=== PATIENT | female | born 1970 | race Caucasian/White ===

== ENCOUNTER 2020-10-20 11:58 | Emergency (ER) | payer OTHER, SELFPAY ==
--- NOTE | ~2020-10-20 | XR_ITS ---
XR knee LT min 4V 10/20/2020 12:28 INDICATION: Left knee pain PROCEDURE: 4 views left knee COMPARISON: No prior studies for comparison. FINDINGS: Fracture, dislocation or subluxation is not identified. There is a small joint effusion. Th e soft tissues appear within normal limits. No foreign bodies are identified. IMPRESSION: 1: NO ACUTE BONE OR JOINT ABNORMALITY IDENTIFIED. Reviewed, dictated and finalized at location B. R SCIENTIST
[2020-10-20 12:00] VITALS: BP 136/74; PULSE 90; RESP 16; TEMP 36.1; O2SAT 100
[2020-10-20 13:54] LABS: Anion Gap 8 mmol/L (8-16); Blood Urea Nitrogen 9 mg/dL (7-17); Calcium 8.9 mg/dL (8.4-10.2); Carbon Dioxide 24 mmol/L (22-30); Chloride 105 mmol/L (98-107); Estimated CRCL calculation 123 ml/min; Estimated Glomerular Filt Rate > 60; Glucose 89 mg/dL (65-105); Potassium 4.1 mmol/L (3.4-5.0); Sodium 137 mmol/L (137-145)
--- NOTE | 2020-10-20 14:07 | ED.GENADULT ---
HPI - General Adult General Chief complaint: Extremity Injury, Lower Stated complaint: knee swelling Time Seen by Provider: 10/20/20 12:14 Source: patient Mode of arrival: ambulatory Limitations: no limitations History of Present Illness HPI narrative: Patient is a 50-year-old female who presents to emergency department for evaluation of painful nodules to the bilateral shins that developed over the last day patient notes aching pain worse with palpation as well as some itching patient notes a few days earlier getting out of the car she believes she may have twisted her left knee with swelling noted today later patient denies other injuries or complaints or recent illness. Related Data Allergies Allergy/AdvReac Type Severity Reaction Status Date / Time latex Allergy Unknown Rash Verified 06/28/18 10:37 Review of Systems Review of Systems: All systems reviewed & are unremarkable except as noted in HPI and below PMFSH Social History Social History Gender identity (if verbalized by the patient): Female Exam Narrative: Exam Narrative: GENERAL: Well-appearing, well-nourished, and in no acute distress. HEAD: Normocephalic, atraumatic. EYES: PERRLA and EOMI. ENT: Nares clear, no rhinorrhea or epistaxis. Mucous membranes moist. CHEST: Clear to auscultation. No respiratory distress. No wheezes rales or rhonchi HEART: Regular rate and rhythm. No murmur heard. Normal peripheral pulses. EXTREMITIES: Normal range of motion. No edema. SKIN: Warm, dry, no rash. Patient with several tender swollen nodular areas to the bilateral shins. Patient with tender swollen left knee mildly swollen in comparison to the right knee there is no erythema or warmth to touch involving the knee NEURO: No focal deficits. Alert and oriented x3. Neurovascularly intact. Capillary refill less than 2 seconds PSYCH: Normal mood and affect. Course Course Emergency Course: Patient in the room in no distress no high risk changes in the blood work or imaging will be sent home with primary care follow-up felt that the patient likely has erythema nodosum given the presentation and findings patient will be referred back to primary care for this and provided with reasons to return as well Vital Signs Vital signs: Vital Signs Temperature 97 F L 10/20/20 12:00 Pulse Rate 90 10/20/20 12:00 Respiratory Rate 16 10/20/20 12:00 Blood Pressure 136/74 10/20/20 12:00 Pulse Oximetry 100 10/20/20 12:00 Temperature 97 F L 10/20/20 12:00 Pulse Rate 90 10/20/20 12:00 Respiratory Rate 16 10/20/20 12:00 Blood Pressure 136/74 10/20/20 12:00 Pulse Oximetry 100 10/20/20 12:00 Medical Decision Making MDM Narrative Medical decision making narrative: Patients injury or pain is consistent with musculoskeletal etiology. No signs of neurological or vascular compromise on exam. Compartments and tisues are soft without signs of compartment syndrome. Pain is felt appropriate for further evaluation on an outpatient basis. Vital Signs Vital Signs: Vital Signs Temperature 97 F L 10/20/20 12:00 Pulse Rate 90 10/20/20 12:00 Respiratory Rate 16 10/20/20 12:00 Blood Pressure 136/74 10/20/20 12:00 Pulse Oximetry 100 10/20/20 12:00 Temperature 97 F L 10/20/20 12:00 Pulse Rate 90 10/20/20 12:00 Respiratory Rate 16 10/20/20 12:00 Blood Pressure 136/74 10/20/20 12:00 Pulse Oximetry 100 10/20/20 12:00 Lab Data Result diagrams: 10/20/20 14:12 10/20/20 13:35 Labs: Lab Results 10/20/20 10/20/20 Range/Units 13:35 14:12 WBC 12.5 H (4.5-10.0) K/mm3 RBC 4.79 (4.2-5.4) M/mm3 Hgb 14.4 (12.0-15.0) g/dL Hct 43.6 (37.0-47.0) % MCV 91.0 (80-100) fl MCH 30.1 (26-34) pg MCHC 33.0 (32-36) g/dl RDW 13.1 (11.5-14.5) % Plt Count 293 (150-375) k/mm3 MPV 10.4 (7.4-10.4) fl Immature Gran % (Auto) 0.5 (0-0.5
[2020-10-20 14:18] LABS: Basophils Absolute Auto 0.1 K/mm3 (0.0-0.1); Basophils Percent Auto 0.6 % (0.2-1.2); Eosinophils Absolute Auto 0.1 K/mm3 (0-0.3); Eosinophils Percent Auto 1.1 % (0-4.4); Hematocrit 43.6 % (37.0-47.0); Hemoglobin 14.4 g/dL (12.0-15.0); Immature Granulocyte Absolute 0.06 K/mm3 (0.00-0.031); Immature Granulocyte Percent A 0.5 % (0-0.5); Lymphocytes Absolute Auto 3.11 K/mm3 (0.9-3.2); Mean Corpuscular Hemoglobin 30.1 pg (26-34); Mean Platelet Volume 10.4 fl (7.4-10.4); Monocytes Absolute Auto 0.8 K/mm3 (0.1-0.6); Monocytes Percent Auto 6.5 % (2.6-8.5); Neutrophils Absolute Auto 8.3 K/mm3 (1.3-6.7); Neutrophils Percent Auto 66.3 % (45.5-73.1); Platelet Count Result 293 k/mm3 (150-375); Red Blood Count 4.79 M/mm3 (4.2-5.4); Red Cell Distribution Width 13.1 % (11.5-14.5); White Blood Count 12.5 K/mm3 (4.5-10.0)
== END 2020-10-20 14:45 | disposition home or self-care (01) ==
PROVIDERS: Emergency Medicine Emergency Medical Services; Emergency Provider Emergency Medicine; PCP Family Medicine
DX: L52 Erythema nodosum (principal); M25.562 Pain in left knee
CPT/HCPCS: 36415; 73564; 80048; 85025; 99283

== ENCOUNTER 2022-01-21 19:34 | Emergency (ER) | payer OTHER, SELFPAY ==
--- NOTE | 2022-01-21 20:13 | PC.NURSE ---
2007- Pt stated that she did not want to wait any longer and would go to another ER.
== END 2022-01-21 20:15 | disposition left against medical advice (07) ==
LOC: ANHED 20:18
PROVIDERS: PCP Family Medicine
DX: Z53.21 Procedure and treatment not carried out due to patient leaving prior to being seen by health care provider (principal)
CPT/HCPCS: 99199

== ENCOUNTER 2023-10-24 16:46 | Emergency (ER) | payer OTHER, SELFPAY ==
--- NOTE | ~2023-10-24 | CT_ITS ---
EXAMINATION: CT diagnostic chest wo con DATE: 10/24/2023 20:44 INDICATION: right rib pain, coughing TECHNIQUE: Computed tomography (CT) of the chest was performed without intravenous contrast. Addition al 3D reconstructions utilizing coronal maximum intensity projection (MIP) were performed. Automated exposure control and iterative reconstruction technique were employed. The dose-length product was 75 0.84 mGy-cm. COMPARISON: None FINDINGS: Subtle patchy groundglass opacities in the apical and posterior segments of the right upper lobe susp icious for pneumonia. No pulmonary edema or pleural effusion. Heart size is normal. No pericardial ef fusion. Thoracic aorta is normal in caliber. No pathologically enlarged abdominal or pelvic lymphaden opathy. Prominent diffuse hepatic steatosis. Visualized upper abdomen is otherwise unremarkable. No e vident rib fractures. Moderate thoracic spondylosis with chronic mild anterior wedging at T7-T9 and T 11. IMPRESSION: 1. Subtle patchy groundglass opacities in the right upper lobe suspicious for pneumonia. Reviewed, dictated and finalized at location A. OLOGY TEACHER IMPRESSION: 1. Subtle patchy groundglass opacities in the right upper lobe suspicious for p neumonia.
[2023-10-24 16:50] VITALS: BP 135/89; PULSE 78; RESP 20; TEMP 35.9; O2SAT 97
[2023-10-24 17:37] LABS: Influenza A QL RT-PCR Negative (Negative); Influenza B QL RT-PCR Negative (Negative); RSV RNA, RT-PCR Negative (Negative); SARS-CoV-2 RNA PCR Negative (Negative)
--- NOTE | 2023-10-24 20:31 | ED.GENADULT ---
[facility] - General Adult General Chief complaint: Upper Respiratory Infection Stated complaint: congestion/earache Time Seen by Provider: 10/24/23 19:57 Source: patient Mode of arrival: ambulatory Limitations: no limitations History of Present Illness HPI narrative: This is a 53-year-old female who presents to the ED with chief complaint of URI symptoms for the past 5 days. Reports significant coughing that has caused right-sided rib pain. She feels tight and wheezy. 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 Does know 1 of her coworkers was sick last week. Reports fevers a few days ago that have resolved. She is also reporting diarrhea with no GI bleeding symptoms. Denies nausea or vomiting, abdominal pain, exertional chest pain or shortness of breath. Related Data Allergies Allergy/AdvReac Type Severity Reaction Status Date / Time latex Allergy Unknown Rash Verified 06/28/18 10:37 Review of Systems Review of Systems: All systems as dictated in [facility] Social History Social History Gender identity (if verbalized by the patient): Female Exam Narrative: GENERAL: Well-appearing, well-nourished, and in no acute distress. HEAD: Normocephalic, atraumatic. EYES: PERRLA and EOMI. ENT: Nares clear, no rhinorrhea or epistaxis. Mucous membranes moist. Oropharynx without tonsillar hypertrophy exudate or other lesions. NECK: Supple. No adenopathy or masses. CHEST: No respiratory distress. Clear to auscultation. No wheezes rales or rhonchi. Moderate tenderness to the right anterior chest wall. 97% room air. HEART: Regular rate and rhythm. No murmur heard. Normal peripheral pulses. ABDOMEN: Soft, nontender, nondistended, normal active bowel sounds. MSK: Normal range of motion. No edema. SKIN: Warm, dry, no rash. NEURO: Alert and oriented x3. No focal deficits. PSYCH: Normal mood and affect. Course Vital Signs Vital signs: Vital Signs Temperature 96.7 F L 10/24/23 16:50 Pulse Rate 78 10/24/23 16:50 Respiratory Rate 20 10/24/23 16:50 Blood Pressure 135/89 10/24/23 16:50 Pulse Oximetry 97 10/24/23 16:50 Oxygen Delivery Room Air 10/24/23 16:50 Temperature 96.7 F L 10/24/23 16:50 Pulse Rate 80 10/24/23 22:11 Respiratory Rate 15 10/24/23 22:11 Blood Pressure 126/70 10/24/23 22:11 Pulse Oximetry 97 10/24/23 22:11 Oxygen Delivery Room Air 10/24/23 16:50 Medical Decision Making MDM Narrative Medical decision making narrative: This is a 53-year-old female who presents to the ED with chief complaint of URI symptoms and productive cough. She has right rib pain and is concern for possible rib fracture with the cough. Vitals are normal. Afebrile. Exam is overall benign but she does have point tenderness to the right ribs. Lab work shows relatively unremarkable CBC and CMP. Viral swabs are negative. Chest CT shows subtle patchy ground-glass opacities in the right upper lobe suspicious for pneumonia. She will be given prescription for azithromycin. Pt will be discharged in stable condition. Return precautions given and supportive measures discussed. Pt is understanding and agreeable with plan for discharge and follow-up with PCP. Vital Signs Vital Signs: Vital Signs Temperature 96.7 F L 10/24/23 16:50 Pulse Rate 78 10/24/23 16:50 Respiratory Rate 20 10/24/23 16:50 Blood Pressure 135/89 10/24/23 16:50 Pulse Oximetry 97 10/24/23 16:50 Oxygen Delivery Room Air 10/24/23 16:50 Temperature 96.7 F L 10/24/23 16:50 Pulse Rate 80 10/24/23 22:11 Respiratory Rate 15 10/24/23 22:11 Blood Pressure 126/70 10/24/23 22:11 Pulse Oximetry 97 10/24/23 22:11 Oxygen Delivery Room Air 10/24/23 16:50 Lab Data 10/24/23 21:18 10/24/23 21:18 Labs: Lab Results 10/24/23 10/24/23 Range/Units 16:54 21:18 WBC 10.9 H (4.5
[2023-10-24 21:28] VITALS: BP 124/76; PULSE 72; RESP 15; O2SAT 98
[2023-10-24 21:30] LABS: Basophils Absolute Auto 0.1 K/mm3 (0.0-0.1); Basophils Percent Auto 0.8 % (0.2-1.2); Eosinophils Absolute Auto 0.3 K/mm3 (0-0.3); Eosinophils Percent Auto 2.4 % (0-4.4); Hematocrit 45.2 % (37.0-47.0); Hemoglobin 14.8 g/dL (12.0-15.0); Immature Granulocyte Absolute 0.04 K/mm3 (0.00-0.031); Immature Granulocyte Percent A 0.4 % (0-0.5); Lymphocytes Absolute Auto 2.65 K/mm3 (0.9-3.2); Lymphocytes Percent Auto 24.3 % (18.3-44.2); Mean Corpuscular HGB Conc 32.7 g/dl (32-36); Mean Corpuscular Hemoglobin 29.8 pg (26-34); Mean Corpuscular Volume 90.9 fl (80-100); Mean Platelet Volume 11.1 fl (7.4-10.4); Monocytes Absolute Auto 0.7 K/mm3 (0.1-0.6); Monocytes Percent Auto 6.7 % (2.6-8.5); Neutrophils Absolute Auto 7.1 K/mm3 (1.3-6.7); Neutrophils Percent Auto 65.4 % (45.5-73.1); Platelet Count Result 259 k/mm3 (150-375); Red Blood Count 4.97 M/mm3 (4.2-5.4); Red Cell Distribution Width 12.9 % (11.5-14.5); White Blood Count 10.9 K/mm3 (4.5-10.0)
[2023-10-24 21:40] LABS: Alanine Aminotransferase 37 U/L (6-35); Albumin Level 4.2 g/dL (3.5-5.1); Alkaline Phosphatase 70 U/L (38-126); Anion Gap 7 mmol/L (8-16); Aspartate Amino Transferase 40 U/L (14-36); Bilirubin,Total 0.6 mg/dL (0.2-1.3); Blood Urea Nitrogen 12 mg/dL (7-17); Calcium 9.6 mg/dL (8.4-10.2); Carbon Dioxide 25 mmol/L (22-30); Chloride 104 mmol/L (98-107); Estimated CRCL calculation 118 ml/min; Estimated Glomerular Filt Rate > 60; Glucose 95 mg/dL (65-110); Sodium 136 mmol/L (137-145)
[2023-10-24 22:11] VITALS: BP 126/70; PULSE 80; RESP 15; O2SAT 97
== END 2023-10-24 22:11 | disposition home or self-care (01) ==
PROVIDERS: Student in an Organized Health Care Education/Training Program; Emergency Provider Physician Assistant; PCP Family Medicine
DX: J18.9 Pneumonia, unspecified organism (principal); Z20.822 Contact with and (suspected) exposure to COVID-19
CPT/HCPCS: 36415; 71250; 80053; 85025; 87637; 99284

== ENCOUNTER 2024-10-29 15:58 | Emergency (ER) | payer OTHER, SELFPAY ==
--- NOTE | ~2024-10-29 | CT_ITS ---
EXAMINATION: CTA chest PE abdomen pel DATE: 10/29/2024 21:55 INDICATION: Chest pain. Shortness of breath. Abdominal pain. TECHNIQUE: Computed tomography angiography (CTA) of the chest was performed with 100 mL Omnipaque-350 intravenous contrast timed to evaluate the pulmonary arteries. Coronal maximum intensity projection 3D-reconstructions were created by the technologist. Computed tomography (CT) of the abdomen and pelv is was performed with intravenous contrast. Automated exposure control and iterative reconstruction t echnique were employed. The dose-length product was 2370.14 mGy-cm. COMPARISON: CT chest 10/24/2023 FINDINGS: CTA chest: The lungs demonstrate mild atelectasis. There are a few nodules in right lung measuring up to 4 mm, likely benign. No pleural effusion. The heart size is normal. No pericardial effusion. Ther e is no pulmonary embolus. There is mild chronic anterior wedging of multiple vertebral bodies. There is moderate thoracic spondylosis and severe cervical spondylosis. CT abdomen and pelvis: There is diffuse hepatic steatosis. The gallbladder, spleen, pancreas, and adr enal glands are normal. There are cysts in the kidneys measuring up to 10 mm on the right. There are no dilated loops of bowel. The appendix is not visualized. There are no pathologically enlarged lymph nodes. There is no free intraperitoneal fluid. There are chronic bilateral L5 pars defects. There is severe lumbar spondylosis. IMPRESSION: 1. No pulmonary embolus. 2. Diffuse hepatic steatosis. Reviewed, dictated and finalized at location A. ICING MACHINE OPERATOR
--- NOTE | ~2024-10-29 | XR_ITS ---
EXAMINATION: XR chest 2V DATE: 10/29/2024 16:21 INDICATION: Left chest pain. TECHNIQUE: Frontal and lateral views of the chest were obtained. COMPARISON: Chest CT 10/24/2023 FINDINGS: There is mild atelectasis in left lower lung zone. No pleural effusion or pneumothorax. The heart size is normal. There is mild chronic anterior wedging of multiple vertebral bodies. IMPRESSION: 1. Mild atelectasis in left lower lung zone. Reviewed, dictated and finalized at location A. ESTATE LOAN PROCESSOR
--- NOTE | 2024-10-29 16:01 | ECG_ITS ---
Test Date: 2024-10-29 16:52:03 Measurements Intervals [place] Rate: 68 P: 31 MI: 151 QRS: 31 QRSD: 106 T: 12 QT: 399 QTc: 427 Interpretive Statements SINUS RHYTHM INCOMPLETE RIGHT BUNDLE BRANCH BLOCK LOW QRS VOLTAGE IN PRECORDIAL LEADS MINIMAL Q WAVES- INFERIOR LEADS BORDERLINE ECG No previous ECG available for comparison Electronically Signed On 10-29-2024 16:57:17 [employer] by Miguel Muller D.O.
--- OUTSIDE RECORDS SUMMARY | 2024-10-29 16:01 | XMS_ITS | Referral Summary ---
Author Organization [facility] Address [address] [place] [address] Care Team Providers Care Rivet Tester Name Role Phone Andrew Velazco DO Primary Care Provider + Allergies Active Allergy Reactions Criticality Noted Date Comments Latex Hives Medium 05/07/2019 Medications ibuprofen (Wal-Profen) 200 mg tab/cap 1 tablet/caps ule (200 mg total) 3 (three) times a day Active escitalopram (LEXAPRO) 10 mg tablet Take 1 tablet (10 mg total) by mouth daily 90 tablet 1 04/17/2023 Active ALPRAZolam (XANAX) 0.5 mg tablet Take 1 tablet (0.5 mg total) by mouth 3 (three) times a day 90 tablet 5 05/01/2023 Active acetaminophen-co deine (TYLENOL with CODEINE #3) 300-30 mg per tablet Take 1 tablet by mouth every 6 (six) hours as needed for pain 28 tablet 05/20/2023 Active furosemide (LASIX) 40 mg tablet Take 1 tablet (40 mg total) by mouth daily as needed (take daily prn for swelling) 30 tablet 09/16/2023 Active Active Problems Problem Noted Date Diagnosed Date Closed nondisplaced fracture of neck of left rad ius 05/22/2023 Annual physical exam 04/01/2023 Assessment & Plan (04/01/2023 4:55 PM CDT): Routine lab Losing hair Will also order a tsh and free t4 Also fatigue after eating Order a A1c and sma 7 Mammogram Order a colonoscopy Severe obesity (BMI 35.0-39.9) with comorbidity 04/01/2023 Assessment & Plan (04/01/2023 5:04 PM CDT): Healthy diet Regular exercise Weight loss Immunizations Immunization Administration Dates Next Due Influenza, Quadrivalent, Spl it, Preservative Free, Intramuscular 08/10/2019 Influenza, Unspecified 06/28/2022 Pneumococcal Polysaccharide PPV23 08/10/2019 Tdap 08/10/2019 Social History Tobacco Use Types Packs/Day Years Used Date Smoking Tobacco: Every Day Cigarettes Smokeless Tobacco: Never Tobacco Cessation:Ready to Q uit: Not Asked; Counseling Given: Not Answered AUDIT-C Answer Date Recorded Q1: How often do you have a drink containing alc ohol? Monthly or less 04/01/2023 Q2: How many drinks containi ng alcohol do you have on a typical day when you are drinking? 1 or 2 04/01/2023 Frequency of Binge Drinking Not on file 03/10 PHQ-2 Answer Date Recorded PHQ-2 Total Score (If total score is 3 or more points, staff should administer the PHQ-9) 1 04/01/2023 Personal Safety Answer Date Recorded Getting School Help Needed Not on file 08/21 Comments No Sex and Gender Information Value Date Recorded Sex Assigned at Not on file Legal Sex Female 12:02 AM KNOCKOUT MAN Gender Identity Not on file Sexual Orientation Not on file Last Filed Vital Signs Vital Sign Reading Time Taken Comments Blood Pressure 126/82 05/20/2023 11:44 AM CDT Pulse 67 05/20/2023 11:44 AM CDT Temperature 36.6 C (97.8 F) 05/20/2023 11:44 AM CDT Respiratory Rate 18 05/20/2023 11:44 AM CDT Oxygen Saturation 98% 05/20/2023 11:44 AM CDT Inhaled Oxygen Concentration - - Weight 114.8 kg (253 lb) 07/08/2023 1:33 PM CDT Height 170.2 cm (5' 7 ) 07/08/2023 1:33 PM CDT Body Mass Index 39.63 07/08/2023 1:33 PM CDT Plan of Treatment Not on file Insurance [facility] Care Teams Rivet Tester Relationship Specialty Start Date End Date Andrew Velazco DO PCP - General Family Medicine 04/04/23
--- OUTSIDE RECORDS SUMMARY | 2024-10-29 16:01 | XMS_ITS | Clinical Summary ---
Author Organization [facility] Address [address] [place] [address] Care Team Providers Care Manager Contact Name Role Phone Unavailable Primary Care Provider Unavailabl e Allergies Active Allergy Reactions Criticality Noted Date Comments Latex Hives 05/07/2019 Medications furosemide 40 MG tabletIndicatio ns:Peripheral edema Take 1 tablet (40 mg total) by mouth daily as needed. 90 tablet 3 01/31/2022 Active escitalopram (LEXAPRO) 10 MG tabletIndicatio ns:Bipolar 2 disorder ([facility]) Take 1 tablet by mouth once daily 90 tablet 01/06/2023 Active ALPRAZolam (XANAX) 0.5 MG tabletIndicatio ns:Anxiety,Christos odiazepine dependence ([facility]) TAKE 1 TABLET BY MOUTH THREE TIMES DAILY NEEDED FOR ANXIETY 90 tablet 03/20/2023 Active Active Problems Problem Noted Date Diagnosed Date [facility] benzodiazepine use 2022 Peripheral edema 01/31/2022 Bipolar 2 disorder ([facility]) 01/31/2022 Class 3 severe obesity due t o excess calories without serious comorbidity with body mass index (BMI) of 40.0 to 44.9 in adult ([facility]) 01/31/2022 Anxiety 10/03/2021 Resolved Problems Problem Noted Date Diagnosed Date Resolved Date Benzodiazepine dependence ([facility]) 01/31/2022 09/19/2022 Immunizations Name Administration Dates Next Due Fluzone 6 Months+ Quad (0.5 mL Prefilled Syringe) 08/10/2019 Influenza Adult (Generic) 06/03/2019(Def erred: Patient Refused),06/09/2018(Deferred: Patient Refused) PFIZER COVID-19 ([facility]), MRNA, LNP-S, PF, 30 MCG/0.3 ML PAMELA-SUCROSE, IM 10/03/2021 Pneumococcal (Pneumovax 23) 08/10/2019 Tdap (Adacel) 08/10/2019 Family History Medical History Relation Comments Cancer Maternal Aunt Diabetes Maternal Grandmother Heart Disease Maternal Grandmother Hyperlipidemia Maternal Grandmother Relation Status Comments Maternal Aunt Maternal Grandmother Social History Tobacco Use Types Packs/Day Years Used Date Smoking Tobacco: Every Day Cigarettes Smokeless Tobacco: Never Tobacco Cessation:Ready to Q uit: Yes; Counseling Given: Yes Comments:to discuss with physician PHQ-2 Answer Date Recorded PHQ-2 Score - If the patient scores above 3, please move on to questions 3-9 5 10/03/2021 Comments No Sex and Gender Information Value Date Recorded Sex Assigned at Not on file Legal Sex Female 8:19 PM CDT Gender Identity Female 09/13/2021 11:52 AM CHECK TOTALER Sexual Orientation Straight 09/13/2021 11 :52 AM CHECK TOTALER Last Filed Vital Signs Vital Sign Reading Time Taken Comments Blood Pressure 116/88 01/31/2022 10:57 AM CDT Pulse 76 01/31/2022 10:57 AM CDT Temperature 36.8 C (98.2 F) 01/31/2022 10:57 AM CDT Respiratory Rate 18 01/31/2022 10:5 7 AM CDT Oxygen Saturation 100% 01/31/2022 10: 57 AM CDT Inhaled Oxygen Concentration - - Weight 119.7 kg (263 lb 14.4 oz) 2021 10:57 AM CDT Height 167.6 cm (5' 6 ) 10/16/2019 10:4 4 AM CHECK TOTALER Body Mass Index 42.59 10/16/2019 10:44 AM CHECK TOTALER Plan of Treatment Health Maintenance Due Date Last Done Comments Colorectal Cancer Screening Colonoscopy (10 Years) 1972 PHQ-2 (Physician [place]) 1984 Hepatitis B Vaccines (1 of 3 - 19+ 3-dose series) 1991 Mammogram Screening 2012 Annual Physical 07/08/2020 07/08/2019 Pneumococcal Vaccine: Pediatrics (0 to 5 Years) and At-Risk Patients (6 to 64 Years) (2 of 2 - PCV) 08/10/2020 08/10/2019 Cervical Cancer Screening Pa p Smear (Age 30 to 64) Every 3 Years 07/08/2022 07/08/2019 Zoster Vaccines (1 of 2) 2022 COVID-19 Vaccine (4 - 2023-2 5 season) 2024 10/03/2021, 02/14/2021, 01/24/2021 Influenza Adult (#1) 2024 08/10/2019 Cervical Cancer Screening Pa p with HPV Testing (Age 30 to 64) Every 5 Years 07/08/2024 07/08/2019 Cervical Cancer Screening wi th HPV 07/08/2024 PHQ-2 (Physician [place]) 09/09/2024 DTaP, Tdap and Td Vaccines ( 2 - Td or Tdap) 08/10/2029 08/10/2019 Hepatitis C Completed 10/31/2021 Meningococcal B Vaccine Aged Out No l onger eligible based on patient's age to complete this topic Meningococcal Vaccine Aged Out No mildred elena eligible based on patient's age to complete this topic RSV Immunizations Under 20 Months Aged Out No longer eligible b ased on patient's age to complete this topic Procedures Procedure Name Priority Date/Time Associated Diagnosis Comments HEPATITIS C ANTIBODY W/RFX TO HCV RNA Routine 10/31/2021 1:16 PM CHECK TOTALER HPV MRNA E6/E7 Routine 07/08/2019 3:10 PM CDT CYTOPATH CERV/VAG THIN LAYER Routine 07/08/2019 12:00 AM CDT from Last 3 Months or Most Recently Relevant to Health Maintenance Results * HEPATITIS C ANTIBODY W/RFX TO HCV RNA (10/31/2021 1:16 PM CHECK TOTALER) HEPATITIS C AB NON-REACTI VE NON-REACT LORAINE [facility] SIGNAL TO CUTOFF 0.05 <[address] [facility] Comment: HCV antibody was non-reactive. There is no laboratory evidence of HCV infection. In most cases, no further action is required. However, if recent HCV exposure is suspected, a test for HCV RNA (test code 49547) is suggested. For additional information please refer to http://[facility]/faq/IAW36f0 (This link is being provided for informational/ educational purposes only.) 10/31/2021 1:16 PM CHECK TOTALER 10/31/2021 1:19 PM CHECK TOTALER Narrative [facility] - 11/04/2021 9:51 PM CHECK TOTALER FASTING:YES FASTING: YES Sanjay Vega MD LABORATORY Final Result [facility] [place] [address] [place] [address] * HPV MRNA E6/E7 (07/08/2019 3:10 PM CDT) HPV MRNA E6/E7 Not Detected NOT DETECTED 07/14/2019 7:55 AM CHECK TOTALER [facility] Comment: This test was performed using the APTIMA(R) HPV Assay ([employer] This assay detects E6/E7 viral messenger RNA (mRNA) from 14 high-risk HPV types (16,18,31,33,35,39,45,51, 52,56,58,59,66,68). For additional information please refer to: http://[facility]/faq/TVQ652l5 (This link is being provided for informational/ educational purposes only.) The analytical performance characteristics of this assay have been determined by [employer] [place], [place]. The modifications have not been cleared or approved by the FDA. This assay has been validated pursuant to the CLIA regulations and is used for clinical purposes. Test Performed by [facility], [facility], [address] [place] [address] Ortiz Paz M.D., Ph.D., Director of Laboratories , CLIA [id number] 07/08/2019 3:10 PM CDT Sanjay Vega MD PATHOLOGY/CYTOLOGY ORDERABLES Final Result [facility] [address] [place] [address], [place] [phone] * Cytopath Cerv/Vag Thin Layer (07/08/2019 12:00 AM CDT) COPATH REPORT [address] [address] [phone] Department of Pathology Pathology Report Gynecological Cytology Report Patient Name: BRITTNEY RAMSEY : 1970 (Age: 48) Location: [facility] Gender: F Collected Date: 07/08/2019 Med Rec #: [id number] Date Received: 07/10/2019 Date Reported: 07/14/2019 Provider: SANJAY VEGA MD Final Cytologic Diagnosis Satisfactory for evaluation. Endocervical component not identified. Negative for Intraepithelial Lesion or Malignancy. High-risk HPV mRNA E6/E7 by [employer]ptima assay (performed at [facility]) is reported as NOT DETECTED (see separate report for details). Electronically Signed Out By Oni Cee Source of Specimen(s) Cervical/Endocervi mango - Thin Prep Clinical History Screening, last Pap not provided. Z00.00, Z01.419 Date of Last Menstrual Period: [facility] Billing Fee Code(s): A: [address] [facility] 07/08/2019 07/10/2019 10: 25 AM CDT Comment:CERVICAL/ENDOCERVICA L - THIN PREP Sanjay Vega MD PATHOLOGY/CYTOLOGY ORDERABLES Final Result [facility] [address] [place] [address], [place] [phone] from Last 3 Months or Most Recently Relevant to Health Maintenance Insurance [employer]
--- OUTSIDE RECORDS SUMMARY | 2024-10-29 16:01 | XMS_ITS | Encounter Summary ---
Author Organization [facility] Address [address] [place] [address] Care Team Providers Care Slip Feeder Name Role Phone Sanjay Gallagher MD Primary Care Provider [phone] Encounter Details Date Type Department Care Team (Late st Contact Info) Description 09/19/2022 [employer] Systemst Message Enc [facility] Family Medicine - [place] [address], [address] [place] [address] Sanjay Gallagher MD [address] [facility] [address] [place] [address] Xanax Social History Tobacco Use Types Packs/Day Years Used Date Smoking Tobacco: Every Day Cigarettes Smokeless Tobacco: Never Comments:to discuss with larisa saab PHQ-2 Answer Date Recorded PHQ-2 Score - If the patient scores above 3, please move on to questions 3-9 5 10/03/2021 Comments No Sex and Gender Information Value Date Recorded Sex Assigned at Not on file Legal Sex Female 8:19 PM CDT Gender Identity Female 09/13/2021 11:52 AM BIRD TRAPPER Sexual Orientation Straight 09/13/2021 11 :52 AM BIRD TRAPPER documented as of this encounter Plan of Treatment Not on file documented as of this encounter Visit Diagnoses Not on filedocumented in this encounter Additional Health Concerns Assessment Noted Time PHQ-9 Depression Total Score: 18 022 4:54 PM BIRD TRAPPER documented as of this encounter Care Teams Slip Feeder Relationship Specialty Start Date End Date Sanjay Gallagher MD [address] [facility] [address] [place] [address] PCP - General FAMILY PRACTICE 02/13/19 04/02/23 documented as of this encounter
--- OUTSIDE RECORDS SUMMARY | 2024-10-29 16:01 | XMS_ITS | Encounter Summary ---
Author Organization [facility] Address [address] [place] [address] Care Team Providers Care Police Captain Precinct Name Role Phone Sanjay Gallagher MD Primary Care Provider [phone] Encounter Details Date Type Department Care Team (Late st Contact Info) Description 10/07/2021 MyChart Message Enc [facility] Family Medicine - [place] [address] [facility], [address] [place] [phone] Sanjay Gallagher MD [address] [place] [address] followup Social History Tobacco Use Types Packs/Day Years Used Date Smoking Tobacco: Every Day Cigarettes Smokeless Tobacco: Never PHQ-2 Answer Date Recorded PHQ-2 Score - If the patient scores above 3, please move on to questions 3-9 5 10/03/2021 Comments No Sex and Gender Information Value Date Recorded Sex Assigned at Not on file Legal Sex Female 8:19 PM CDT Gender Identity Female 09/13/2021 11:52 AM SUPERVISOR LONG GOODS Sexual Orientation Straight 09/13/2021 11 :52 AM SUPERVISOR [employer] COVID-19 Exposure Response Date Recorded In the last month, have you been in contact with someone who was confirmed or suspected to have Coronavirus / COVID-19? No / Unsure 10/03/2021 2:08 PM SUPERVISOR [employer] GOODS documented as of this encounter Plan of Treatment Not on file documented as of this encounter Visit Diagnoses Not on filedocumented in this encounter Additional Health Concerns Assessment Noted Time PHQ-9 Depression Total Score: 18 022 4:54 PM SUPERVISOR [employer] documented as of this encounter Care Teams Police Captain Precinct Relationship Specialty Start Date End Date Sanjay Gallagher MD [address] [address] [place] [address] PCP - General FAMILY PRACTICE 02/13/19 04/02/23 documented as of this encounter
--- OUTSIDE RECORDS SUMMARY | 2024-10-29 16:01 | XMS_ITS | Encounter Summary ---
Author Organization [facility] Address [address] [place] [address] Care Team Providers Care Hat Brim And Crown Laminating Operator Name Role Phone Sanjay Gallagher MD Primary Care Provider Encounter Details Date Type Department Care Team (Late st Contact Info) Description 01/04/2022 Good Eggs Message Enc [facility] Family Medicine - [place] [address] , [address] [place] [phone] [facility] Provider controlled substance agreement Social History Tobacco Use Types Packs/Day Years [...] CDT Gender Identity Female 09/13/2021 11:52 AM SAS ARCHITECT Sexual Orientation Straight 09/13/2021 11 :52 AM SAS ARCHITECT documented as of this encounter Plan of Treatment Not on file documented as of this encounter Visit Diagnoses Not on filedocumented in this encounter Additional Health Concerns Assessment Noted Time PHQ-9 Depression Total Score: 18 022 4:54 PM SAS ARCHITECT documented as of this encounter Care Teams Hat Brim And Crown Laminating Operator Relationship Specialty Start Date End Date Sanjay Gallagher MD [address] [facility] [address] [place] [address] PCP - General FAMILY PRACTICE 02/13/19 04/02/23 documented as of this encounter
--- OUTSIDE RECORDS SUMMARY | 2024-10-29 16:01 | XMS_ITS | Encounter Summary ---
Author Organization [facility] Care Team Providers Care Case Supervisor Name Role Phone Sanjay Gallagher MD Primary Care Provider + [phone] Andrew Velazco DO Primary Care Provider + Encounter Details Date Type Department Care Team (Latest Contact Info) Description 03/02/2014 Orders Only [facility] ProviderBere MD [address] [place] [address] Social History Tobacco Use Types Packs/Day Years Used Date Smoking Tobacco: Never Assessed Comments Unknown Sex and Gender Information Value Date Recorded Sex Assigned at Not on file Legal Sex Female 12:02 AM HOME DEPOT REP Gender Identity Not on file Sexual Orientation Not on file documented as of this encounter Plan of Treatment Not on file documented as of this encounter Procedures Procedure Name Priority Date/Time Associated Diagnosis Comments SCAN - LABS 03/02/2014 12:00 AM CDT documented in this encounter Results * SCAN - LABS (03/02/2014 12:00 AM CDT) Narrative 03/02/2014 12:00 AM CDT Ordered by an unspecified provider. Historical Provider Final Res ult documented in this encounter Visit Diagnoses Not on filedocumented in this encounter Care Teams Case Supervisor Relationship Specialty Start Date End Date Sanjay Gallagher MD [address] [facility] [address] [place] [address] PCP - General Family Practice 01/21/22 04/03/23 Andrew Velazco DO [facility] [address] PCP - General Family Medicine 04/04/23 documented as of this encounter
--- OUTSIDE RECORDS SUMMARY | 2024-10-29 16:01 | XMS_ITS | Encounter Summary ---
Author Organization [facility] Address [address] [place] [address] Care Team Providers Care Bun Machine Operator Name Role Phone Sanjay Gallagher MD Primary Care Provider [phone] Encounter Details Date Type Department Care Team (Late st Contact Info) Description 09/19/2022 MyCUrGiftt Message Enc [facility] Family Medicine - [place] [address] [facility], [address] [place] [phone] Sanjay Gallagher MD [address] [facility] [address] [place] [address] Sedative dependency Social History Tobacco Use Types Packs/Day Years [...] CDT Gender Identity Female 09/13/2021 11:52 AM TOLL BOOTH OPERATOR Sexual Orientation Straight 09/13/2021 11 :52 AM TOLL BOOTH OPERATOR documented as of this encounter Plan of Treatment Not on file documented as of this encounter Visit Diagnoses Not on filedocumented in this encounter Additional Health Concerns Assessment Noted Time PHQ-9 Depression Total Score: 18 022 4:54 PM TOLL BOOTH OPERATOR documented as of this encounter Care Teams Bun Machine Operator Relationship Specialty Start Date End Date Sanjay Gallagher MD [address] [facility] [address] [place] [address] PCP - General FAMILY PRACTICE 02/13/19 04/02/23 documented as of this encounter
--- OUTSIDE RECORDS SUMMARY | 2024-10-29 16:01 | XMS_ITS | Encounter Summary ---
Author Organization [facility] Address [address] [place] [address] Care Team Providers Care Food Order Delivery Runner Name Role Phone Sanjay Gallagher MD Primary Care Provider [phone] Encounter Details Date Type Department Care Team (Late st Contact Info) Description 02/08/2022 MyChart Message Enc [facility] Family Medicine - [place] [address] [facility], [address] [place] [phone] Sanjay Gallagher MD [address] [facility] [address] [place], [place] [phone] Blood tests Social History Tobacco Use Types Packs/Day Years Used Date Smoking Tobacco: Every Day Cigarettes Smokeless Tobacco: Never Comments:to discuss with konradgerard saab PHQ-2 Answer Date Recorded PHQ-2 Score - If the patient scores above 3, please move on to questions 3-9 5 10/03/2021 Comments No Sex and Gender Information Value Date Recorded Sex Assigned at Not on file Legal Sex Female 8:19 PM CDT Gender Identity Female 09/13/2021 11:[address] MIXER OPERATOR Sexual Orientation Straight 09/13/2021 11 :[address] MIXER OPERATOR COVID-19 Exposure Response Date Recorded In the last 10 days, have yo u been in contact with someone who was confirmed or suspected to have Coronavirus/COVID-19? No / Unsure 01/31/2022 10:47 AM CDT documented as of this encounter Progress Notes * Araceli Ramirez RN - 02/09/2022 10:33 AM CDT Sent a detailed [employer] message with results and recommendations per Dr. Gallagher. Requested patient to call back to the office or respond via [employer] [facility] with update on swelling. * Araceli Ramirez RN - 02/09/2022 10:30 AM CDT Images from the original note were not included. Sanjay Gallagher MD Stable renal function, please check on patient about swelling documented in this encounter Plan of Treatment Not on file documented as of this encounter Visit Diagnoses Not on filedocumented in this encounter Additional Health Concerns Assessment Noted Time PHQ-9 Depression Total Score: 18 10/03/ 022 4:[address] MIXER OPERATOR documented as of this encounter Care Teams Food Order Delivery Runner Relationship Specialty Start Date End Date Sanjay Gallagher MD [address] [address] PCP - General FAMILY PRACTICE 02/13/19 04/02/23 documented as of this encounter
--- OUTSIDE RECORDS SUMMARY | 2024-10-29 16:01 | XMS_ITS | Data Portability ---
Author Organization [facility] Address [address] [place] [address] Assessment No assessment recorded. Plan of Treatment Reminders Order Date Submit Date Provider Last Modified By Organization Details Last Modified Time Details Appointments None recorded. Lab BMP, serum or plasma 2023 [facility], [address], [address], [place], [address], 4 08:42:23 CBC 2023 024 [facility], [address], [address], [place], [address], 4 08:42:27 lipid panel, serum 2023 024 [facility], [address], [address], [place], [address], 4 08:42:20 TSH + free T4, serum 2023 024 [facility], [address], [address], [place], [address], 4 08:42:22 hepatic function panel, serum 2023 024 [facility], [address], [place], [address], 4 08:42:24 vitamin B12, serum 2023 024 [facility], [address], [address], [place], [address], 4 08:42:28 vitamin D, 25-hydroxy , total, serum 2023 024 [facility], [address], [address], [place], [address], 4 08:42:29 erythrocyt e sedimentat ion rate by westergren method 2023 024 [facility], [address], [address], [place], [address], 4 08:42:25 lipid panel, serum 2018 019 [facility], [address] [place], [place] [address]myesha Escudero, [address], [place], [address], 9 10:12:06 CMP, serum or plasma 2018 019 [facility], [address] [place], [place] [address]myesha Escudero, [address], [place], [address], 9 10:12:05 TSH, ultra-sens itive, serum 2018 019 [facility], [address] [place], [place] [address]myesha Escudero, [address], [place], [address], 9 10:12:07 HbA1c (hemoglobi n A1c), blood 2018 019 [facility], [address] [place], [place] [address]myesha Escudero, [address], [place], [address], 9 10:12:06 Referral gastroente rologist referral - Colonoscop y 2023 024 oksana Serrano DO, [address] [facility], [place], [address], 16:38:05 Procedures None recorded. Surgeries None recorded. Imaging MAMMO, screening, digital, bilateral [address] (Mammography) , [address], [place], [address], 10:27:03 Medication Orders Zithromax Z-Ivan 250 mg tablet 2023 024 [email or web address] [facility], [address] [place], [address], 4 12:37:01 Tessalon Perles 100 mg capsule 2023 024 [id number] [facility], [address] [place], [address], 4 12:37:01 escitalopr am 10 mg tablet 2018 019 INTERFACE [facility], [address] [place], [address], 9 11:25:00 Patient TargetsNo targets recorded. Patient Instructions Encounter Date Encounter Id Patient Instructions Last Modified By Organization Details Last Modified Time 01/29/2024 [id number] Quitting Tobacco : Care Instructions [email or web address] Not available 01/29/2024 15:30:13 A healthy lifestyle: care instructions Not available 01/29/2024 15:28:28 Reason for Referral Record Label Internship Referral for Adult health examination Colonoscopy Referring Physician: Andrew Velazco, Family Medicine, Encounter Date: 01/29/2024 Results Created Date Observation Date Name Description Value Unit Range Abnormal Flag Note LastModifiedBy Organization Detail LastModifiedTime 02/05/2002/05/2019 CMP, serum or plasm a glucose 85 mg/dL 65-99 Not Available [facility] ([facility]) [address] [facility], [place], [address], 02/05/2019 10:12:05 02/05/2002/05/2019 CMP, serum or plasm a BUN 9 mg/dL 6-24 Not Available [facility] ([facility]) [address] [facility] [place], [address], 02/05/2019 10:12:05 02/05/20 19 02/05/2019 CMP, serum or plasm a creatinine 0.66 mg/dL 0.57-1 .00 Not Available [facility] ([facility]) [address] [facility] [place], [address], 02/05/2019 10:12:05 02/05/20 19 02/05/2019 CMP, serum or plasm a eGFR if nonafricn AM 106 mL/mi n/1.7 3 >59 Not Available [facility] ([facility]) [address] [facility] [place], [address], 02/05/2019 10:12:05 02/05/20 19 02/05/2019 CMP, serum or plasm a eGFR if africn AM 123 mL/mi n/1.7 3 >59 Not Available [facility] ([facility]) [address] [facility] [place], [address], 02/05/2019 10:12:05 02/05/20 19 02/05/2019 CMP, serum or plasm a BUN/creatini ne ratio 14 9-23 Not Available [facility] ([facility]) [address] [place], [address], 02/05/2019 10:12:05 02/05/20 19 02/05/2019 CMP, serum or plasm a sodium 142 mmol/ L 134-14 4 Not Available [facility] ([facility]) [address] [facility] [place], [address], 02/05/2019 10:12:05 02/05/20 19 02/05/2019 CMP, serum or plasm a potassium 4.3 mmol/ L 3.5-5. 2 Not Available [facility] ([facility]) [address] [place], [address], 02/05/2019 10:12:05 02/05/20 19 02/05/2019 CMP, serum or plasm a chloride 105 mmol/ L 96-106 Not Available [facility] ([facility]) [address] [facility] [place], [address], 02/05/2019 10:12:05 02/05/20 19 02/05/2019 CMP, serum or plasm a carbon dioxide, total 20 mmol/ L 20-29 Not Available [facility] ([facility]) [address] [facility] [place], [address], 02/05/2019 10:12:05 02/05/20 19 02/05/2019 CMP, serum or plasm a calcium 9.2 mg/dL 8.7-10 .2 Not Available [facility] ([facility]) [address] [place], [address], 02/05/2019 10:12:05 02/05/20 19 02/05/2019 CMP, serum or plasm a protein, total 6.5 g/dL 6.0-8. 5 Not Available [facility] ([facility]) [address] [place], [address], 02/05/2019 10:12:05 02/05/20 19 02/05/2019 CMP, serum or plasm a albumin 4.2 g/dL 3.5-5. 5 Not Available [facility] ([facility]) [address] [place], [address], 02/05/2019 10:12:05 02/05/20 19 02/05/2019 CMP, serum or plasm a globulin, total 2.3 g/dL 1.5-4. 5 Not Available [facility] ([facility]) [address] [place], [address], 02/05/2019 10:12:05 02/05/20 19 02/05/2019 CMP, serum or plasm a A/G ratio 1.8 1.2-2. 2 Not Available [facility] ([facility]) [address] [facility], [place], [address], 02/05/2019 10:12:05 02/05/20 19 02/05/2019 CMP, serum or plasm a bilirubin, total 0.4 mg/dL 0.0-1. 2 Not Available [facility] ([facility] [address] [facility] [place], [address], 02/05/2019 10:12:05 02/05/20 19 02/05/2019 CMP, serum or plasm a alkaline phosphatase 55 IU/L 39-117 Not Available [facility] [address] [facility] [place], [address], 02/05/2019 10:12:05 02/05/20 19 02/05/2019 CMP, serum or plasm a AST (SGOT) 17 IU/L 0-40 Not Available [facility] ([facility]) [address] [facility] [place], [address], 02/05/2019 10:12:05 02/05/2002/05/2019 CMP, serum or plasm a ALT (SGPT) 23 IU/L 0-32 Not Available [facility] ([facility]) [address] [facility] [place], [address], 02/05/2019 10:12:05 02/05/20 19 02/05/2019 lipid panel , serum cholesterol, total 126 mg/dL 100-19 9 Not Available [facility] ([facility]) [address] [facility] [place], [address], 02/05/2019 10:12:06 02/05/2002/05/2019 lipid panel , serum triglyceride s 78 mg/dL 0-149 Not Available [facility] ([facility]) [address] [facility] [place], [address], 02/05/2019 10:12:06 02/05/20 19 02/05/2019 lipid panel , serum HDL cholesterol 46 mg/dL >39 Not Available [facility] ([facility]) [address] [facility] [place], [address], 02/05/2019 10:12:06 02/05/20 19 02/05/2019 lipid panel , serum VLDL cholesterol mango 16 mg/dL 5-40 Not Available [facility] ([facility]) [address] [facility] [place], [address], 02/05/2019 10:12:06 02/05/20 19 02/05/2019 lipid panel , serum LDL cholesterol calc 64 mg/dL 0-99 Not Available [facility] (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) [address] [place], [address], 02/05/2019 10:12:06 02/05/20 19 02/05/2019 HbA1c (hemo globi n A1c), blood hemoglobin A1C 5.9 % 4.8-5. 6 above high normal Predi abete s: 5.7 - 6.4 Diabe amaury: >6.4 Glyce abiola contr ol for adult s with diabe amaury: <7.0 Not Available [facility] ([facility]) [address] [facility], [place], [address], 02/05/2019 10:12:06 02/05/2002/05/2019 TSH, ultra -sens itive , serum TSH 1.390 uIU/m L 0.450- 4.500 Not Available [facility] ([facility]) [address] [place], [address], 02/05/2019 10:12:07 02/05/20 24 02/06/2024 LIPID PANEL WITH RATIO S cholesterol, total 123 mg/dL <200 normal Not Available [facility] [address] [place], [address], 02/06/2024 08:42:20 02/05/20 24 02/06/2024 LIPID PANEL WITH RATIO S HDL cholesterol 44 mg/dL > or = 50 low Not Available [address], [address], 02/06/2024 08:42:20 02/05/20 24 02/06/2024 LIPID PANEL WITH RATIO S triglyceride s 68 mg/dL <150 normal Not Available [facility] [address], [address], 02/06/2024 08:42:20 02/05/20 24 02/06/2024 LIPID PANEL WITH RATIO S LDL-choleste rol 65 mg/dL _(mango c) normal Refer ence range : <100 Nimco able range <100 mg/dL for prima ry preve ntion ; <70 mg/dL for patie nts with CHD or diabe tic patie nts with > or = 2 CHD risk facto rs. LDL-C is now calcu lated using the Dory n-[facility] arseniou angelina n, which is a valid ated novel jesús griggs than the Fried heather equat ion in the estim ation of LDL-C . Dory sinha SS et al. HUBER. 2013; 310(1 9): 2061- 2068 (http ://ed ucati on.Qu Robbie obrien OpenLabels. com/f aq/FA Q164) Not Available [address] [address] [place], [address], 02/06/2024 08:42:20 02/05/20 24 02/06/2024 LIPID PANEL WITH RATIO S chol/HDLC ratio 2.8 (calc ) <5.0 normal Not Available [address] [address] [place], [address], 02/06/2024 08:42:20 02/05/20 24 02/06/2024 LIPID PANEL WITH RATIO S LDL/HDL ratio 1.5 (calc ) Below avera ge Risk: <2.34 Dexter ge Risk: 2.35- 4.12 Moder ate Risk: 4.13- 5.56 High Risk: >5.57 Not Available [address] [place], [address], 02/06/2024 08:42:20 02/05/20 24 02/06/2024 LIPID PANEL WITH RATIO S non HDL cholesterol 79 mg/dL _(mango c) <130 normal For patie nts with diabe amaury plus 1 major ASCVD risk facto r, treat ing to a non-H DL-C goal of <100 mg/dL (LDL- C of <70 mg/dL ) is consi shaned a thergeorgiana peuti c optio n. Not Available [address], [address], 02/06/2024 08:42:20 02/05/2002/06/2024 TSH+F REE T4 TSH 1.88 mIU/L normal Refer ence Range > or = 20 Years 0.40- 4.50 Pregn kashif Range s First trime ster 0.26- 2.66 Secon d trime ster 0.55- 2.73 Third trime ster 0.43- 2.91 Not Available [address], [address], 02/06/2024 08:42:21 02/05/2002/06/2024 TSH+F REE T4 T4, free 1.1 NG/dL 0.8-1. 8 normal Not Available [facility] [address] [address] [place], [address], 02/06/2024 08:42:21 02/05/2002/06/2024 BASIC METAB OLIC PANEL glucose 83 mg/dL 65-99 normal Fasti ng refer ence inter pranay Not Available [address] [place], [address], 02/06/2024 08:42:23 02/05/20 24 02/06/2024 BASIC METAB OLIC PANEL urea nitrogen (BUN) 11 mg/dL 7-25 normal Not Available [address], [address], 02/06/2024 08:42:23 02/05/20 24 02/06/2024 BASIC METAB OLIC PANEL creatinine 0.64 mg/dL 0.50-1 .03 normal Not Available [facility] [address], [address], 02/06/2024 08:42:23 02/05/20 24 02/06/2024 BASIC METAB OLIC PANEL eGFR 107 mL/mi n/1.7 3m2 > or = 60 normal Not Available [address], [address], 02/06/2024 08:42:23 02/05/20 24 02/06/2024 BASIC METAB OLIC PANEL BUN/creatini ne ratio SEE NOTE: (calc ) 6-22 Not Repor shy: BUN and Creat inine are withi n refer ence range . Not Available [facility] [address], [address], 02/06/2024 08:42:23 02/05/20 24 02/06/2024 BASIC METAB OLIC PANEL sodium 139 mmol/ L 135-14 6 normal Not Available [facility] [address], [address], 02/06/2024 08:42:23 02/05/20 24 02/06/2024 BASIC METAB OLIC PANEL potassium 4.3 mmol/ L 3.5-5. 3 normal Not Available [facility] [address], [address], 02/06/2024 08:42:23 02/05/20 24 02/06/2024 BASIC METAB OLIC PANEL chloride 104 mmol/ L 98-110 normal Not Available [facility] [address], [address], 02/06/2024 08:42:23 02/05/20 24 02/06/2024 BASIC METAB OLIC PANEL carbon dioxide 26 mmol/ L 20-32 normal Not Available [address], [address], 02/06/2024 08:42:23 02/05/20 24 02/06/2024 BASIC METAB OLIC PANEL calcium 8.9 mg/dL 8.6-10 .4 normal Not Available [address], [address], 02/06/2024 08:42:23 02/05/20 24 02/06/2024 HEPAT IC FUNCT ION PANEL protein, total 6.2 g/dL 6.1-8. 1 normal Not Available [address], [address], 02/06/2024 08:42:24 02/05/20 24 02/06/2024 HEPAT IC FUNCT ION PANEL albumin 4.1 g/dL 3.6-5. 1 normal Not Available [address], [address], 02/06/2024 08:42:24 02/05/20 24 02/06/2024 HEPAT IC FUNCT ION PANEL globulin 2.1 g/dL_ (calc ) 1.9-3. 7 normal Not Available [address], [address], 02/06/2024 08:42:24 02/05/20 24 02/06/2024 HEPAT IC FUNCT ION PANEL albumin/glob ulin ratio 2.0 (calc ) 1.0-2. 5 normal Not Available [address], [address], 02/06/2024 08:42:24 02/05/20 24 02/06/2024 HEPAT IC FUNCT ION PANEL bilirubin, total 0.6 mg/dL 0.2-1. 2 normal Not Available [address], [address], 02/06/2024 08:42:24 02/05/20 24 02/06/2024 HEPAT IC FUNCT ION PANEL bilirubin, direct 0.1 mg/dL < or = 0.2 normal Not Available [address], [address], 02/06/2024 08:42:24 02/05/20 24 02/06/2024 HEPAT IC FUNCT ION PANEL bilirubin, indirect 0.5 mg/dL _(mango c) 0.2-1. 2 normal Not Available [address], [address], 02/06/2024 08:42:24 02/05/20 24 02/06/2024 HEPAT IC FUNCT ION PANEL alkaline phosphatase 53 U/L 37-153 normal Not Available [address], [address], 02/06/2024 08:42:24 02/05/20 24 02/06/2024 HEPAT IC FUNCT ION PANEL AST 15 U/L 10-35 normal Not Available [address], [address], 02/06/2024 08:42:24 02/05/20 24 02/06/2024 HEPAT IC FUNCT ION PANEL ALT 19 U/L 6-29 normal Not Available [address], [address], 02/06/2024 08:42:24 02/05/20 24 02/06/2024 SED RATE BY MODIF IED CHAMP ISSAREN sed rate by modified marcusren 2 mm/h < or = 30 normal Not Available [address], [address], 02/06/2024 08:42:25 02/05/20 24 02/06/2024 CBC (H/H, RBC, INDIC ES, WBC, PLT) white blood cell count 8.2 thous and/u L 3.8-10 .8 normal Not Available [address], [address], 02/06/2024 08:42:27 02/05/2002/06/2024 CBC (H/H, RBC, INDIC ES, WBC, PLT) red blood cell count 4.69 zheng on/uL 3.80-5 .10 normal Not Available [address], [address], 02/06/2024 08:42:27 02/05/2002/06/2024 CBC (H/H, RBC, INDIC ES, WBC, PLT) hemoglobin 14.1 g/dL 11.7-1 5.5 normal Not Available [address], [address], 02/06/2024 08:42:27 02/05/2002/06/2024 CBC (H/H, RBC, INDIC ES, WBC, PLT) hematocrit 43.0 % 35.0-4 5.0 normal Not Available [address], [address], 02/06/2024 08:42:27 02/05/2002/06/2024 CBC (H/H, RBC, INDIC ES, WBC, PLT) MCV 91.7 fL 80.0-1 00.0 normal Not Available [address], [address], 02/06/2024 08:42:27 02/05/2002/06/2024 CBC (H/H, RBC, INDIC ES, WBC, PLT) MCH 30.1 pg 27.0-3 3.0 normal Not Available [address], [address], 02/06/2024 08:42:27 02/05/20 24 02/06/2024 CBC (H/H, RBC, INDIC ES, WBC, PLT) MCHC 32.8 g/dL 32.0-3 6.0 normal Not Available [address], [address], 02/06/2024 08:42:27 02/05/20 24 02/06/2024 CBC (H/H, RBC, INDIC ES, WBC, PLT) RDW 12.8 % 11.0-1 5.0 normal Not Available [address], [address], 02/06/2024 08:42:27 02/05/20 24 02/06/2024 CBC (H/H, RBC, INDIC ES, WBC, PLT) platelet count 246 thous and/u L 140-40 0 normal Not Available [address], [address], 02/06/2024 08:42:27 02/05/20 24 02/06/2024 CBC (H/H, RBC, INDIC ES, WBC, PLT) MPV 12.0 fL 7.5-12 .5 normal Not Available [address], [address], 02/06/2024 08:42:27 02/05/20 24 02/06/2024 VITAM IN B12 vitamin B12 487 pg/mL 200-11 00 normal Not Available [address], [address], 02/06/2024 08:42:28 02/05/2002/06/2024 VITAM IN D,25- OH,TO MAI,I A vitamin D,25-oh,tota l,ia 15 NG/mL 30-100 low Vitam in D Statu s 25-OH Vitam in D: Defic iency : <20 ng/mL Insuf ficie ncy: 20 - 29 ng/mL Optim al: > or = 30 ng/mL For 25-OH Vitam in D testi ng on patie nts on D2-gu pplem entat ion and patie nts for whom quant itati on of D2 and D3 fract ions is requi red, the [facility] e[facility](TM ) 25-OH VIT D, (D2,D 3), LC/MS /MS is recom koby d: order code 88184 (cody ents >2yrs ). See Note 1 Note 1 For addit ional infor dhruv santo refer to http: //[facility] joe James stDia gnost ics.c om/fa q/FAQ 199 (This link is being provi ded for infor priscilla groves/ educgeorgiana sorto purpo ses only. ) Not Available [facility] [address] [place], [address], 02/06/2024 08:42:29 Result Notes None recorded. Problems Name Problem SNOMED Code Status Onset Date Resolution Date Notes Provider Name and Address Organization Details Recorded Time Mixed anxiety and depressive disorder 572990140 Active 2018 Musa Dietrich PA-C Attn: Libra swift,[address] [place], [address], [place] - [facility] 9 11:16:36 Adult health examination Active 2023 Andrew Velazco DO Attn: Libra swift,[address] [place], [address], [place] [facility] 4 21:21:51 Depressive disorder 72060204 Active 2023 Andrew Velazco DO Attn: Libra swift,[address] [place], [address], [place] [facility] 4 21:21:52 Generalized anxiety disorder 69921129 Active 2023 Andrew Velazco DO Attn: Libra swift,[address] [place], [address], [place] [facility] 4 21:21:53 Headache 65157717 Active 2023 Andrew Velazco DO Attn: Libra swift,[address] [facility], [place], [address], [facility] - [facility] 4 15:30:06 Smoker 46331866 Active 2023 Andrew Velazco DO Attn: Libra swift,[address] [facility], [place], [address], [facility] - [facility] 4 15:30:07 Morbid obesity 568314860 Active 2023 Andrew Velazco DO Attn: Accountdalia g,[address] [facility], [place], [address], [facility] - [facility] 4 15:30:08 Cough 79873824 Active 2023 Andrew Velazco DO Attn: Libra swift,[address] [facility], [place], [address], [facility] - [facility] 4 12:02:25 Problem Notes None recorded. Procedures Surgical History Date Name Laterality Status Provider Name and Address Organization Details Recorded Time 8 section completed Musa Dietrich PA-C Attn: Accounting,[address] [place], [address], [facility] - [facility] 02/04/2019 11:20:05 Imaging Results None recorded. Procedure Notes None recorded. Medical Equipment None Reported. Allergies Allergen ID Allergen Name Allergen Category Reaction Reaction Severity Criticality Documentation Date Start Date Code Code System Note Provider Name and Address Organization Details Recorded Time 522679 latex environme nt,medica tion hives Not available Not available 02/04/2019 14441 91 RxNorm Not Available Not Available Not Available Medications Name Sig Start Date Stop Date Status Note LastModified by Organization Details LastModified Time furosemide 40 mg tablet TAKE 1 TABLET BY MOUTH ONCE DAILY active Not Available Not Available No t Available azithromyci n 250 mg tablet TAKE 2 TABLETS BY MOUTH ON DAY 1, AND THEN TAKE 1 TABLET BY MOUTH ONCE A DAY ON DAY 2 THROUGH DAY 5 active Not Available Not Available No t Available clonazepam 1 mg tablet Take 1.5 tablets twice a day by oral route. 01/28 completed Not Available Not Available Not Available acetaminoph en 300 mg-codeine 30 mg tablet TAKE 1 TABLET BY MOUTH EVERY 6 HOURS NEEDED FOR PAIN 01/28 completed Not Available Not Available Not Available sulfamethox azole 800 mg-trimetho prim 160 mg tablet 02/04 completed Not Available Not Available Not Available alprazolam 0.5 mg tablet TAKE 1 TABLET BY MOUTH THREE TIMES DAILY active Not Available Not Available No t Available benzonatate 100 mg capsule TAKE 1 CAPSULE BY MOUTH THREE TIMES DAILY FOR 10 DAYS active Not Available Not Available No t Available methylpredn isolone 4 mg tablets in a dose pack TAKE 6 TABLETS ON DAY 1 DIRECTED ON PACKAGE AND DECREASE BY 1 TAB EACH DAY FOR A TOTAL OF 6 DAYS 01/28 completed Not Available Not Available Not Available escitalopra m 10 mg tablet TAKE 1 TABLET BY MOUTH ONCE DAILY active Not Available Not Available No t Available Vitals Date Recorded Body height Body mass index (BMI) Body weight Body temperature Heart rate Oxygen saturation Oxygen saturation in Arterial blood by Pulse oximetry Systolic blood pressure Diastolic blood pressure Provider Name and Address Organization Details Last Updated DateTime 9 165.1 cm 42.1 kg/m2 289668. 87 g 98.2 [degF] 82 /min 96 % 96 % 110 mm[Hg] 80 mm[Hg] Autumn Clifton MA [facility] 9 10:48:42 Date Recorded Body height Body mass index (BMI) Body weight Oxygen saturation Oxygen saturation in Arterial blood by Pulse oximetry Heart rate Provider Name and Address Organization Details Last Updated DateTime 4 170.18 cm 41.1 kg/m2 424345. 9 g 96 % 96 % 72 /min Anay Rooney RN [facility] 4 15:10:56 Date Recorded Body height Body mass index (BMI) Body weight Body temperature Provider Name and Address Organization Details Last Updated DateTime 05/08/2024 170.18 cm 40.1 kg/m2 289539.4 g 97.9 [degF] Radha Royal MA [facility] 05/08/2024 11:35:20 Date Recorded Systolic blood pressure Diastolic blood pressure Provider Name and Address Organization Details Last Updated DateTime 05/08/2024 132 mm[Hg] 82 mm[Hg] Andrew Velazco DO Attn: Accounting,[address] [facility], [place], [address], [place] [facility] 05/08/2024 12:02:05 Social History Question Answer Notes LastModified by Organizat ion Details LastModified Time Tobacco Smoking Status Current Every Day Smoker JULIAN Melendez, [place] [facility] 02/04/2019 10:46:26 What Is Your Level Of Alcohol Consumption? Occasional Information not available 01/29/2024 What Is Your Level Of Caffeine Consumption? Moderate Information not available 01/29/2024 What Was The Date Of Your Most Recent Tobacco Screening? 02/04/2019 [id number] Information not available 04/02/2019 How Much Tobacco Do You Smoke? 1 PPD Information not available 02/04/2019 Do You Use Any Illicit Or Recreational Drugs? No Information not available 01/29/2024 Has Tobacco Cessation Counseling Been Provided? Yes Information not available 02/04/2019 On What Date Was Tobacco Cessation Counseling Provided? 05/08/2024 [email or web address] Information not available 05/08/2024 How Many Years Have You Smoked Tobacco? 30 Information not available 02/04/2019 Sex: Unknown Functional Status None recorded. Mental Status None recorded. Family History Relationship Description Onset Age of this Age Resolved Age Notes LastModified by Organization Details LastModified Time Maternal Aunt Malignant neoplasm of liver [email or web address] Not available 2018 11:18:37 Son Autistic disorder [email or web address] Not available 2018 11:18:45 Maternal Grandmother Diabetes mellitus Not available 2018 11:18:56 Maternal Grandfather Systemic lupus erythematosu s [email or web address] Not available 2018 11:19:07 Maternal Grandfather Rheumatoid arthritis [email or web address] Not available 2018 11:19:15 Medical History Condition Response Coronary Artery Disease N Other N High Blood Pressure N Atrial Fibrillation N Kidney or Bladder Problems N Thyroid Problems N Blood Clots N COPD N Depression Y GI Problems N Skin Problems N Eating Disorder N Anemia N Heart Attack ([place]) N Anxiety Disorder Y Diabetes N Muscle, Joint, or Bone Problems N Arthritis N Seizures/Epilepsy N Acid Reflux (GERD) N Cancer N Stroke N Asthma N Allergies N ADHD N Substance Abuse N High Cholesterol N Hepatitis N Liver Disease N Schizophrenia N Headaches N Heart Failure N Osteoporosis N Gynecological HistoryNo gynecological history recorded. Obstetrics History GPAL:G 0 P 0 0 0 0 Past Encounters Encounter ID Performer Location Encounter Start Date Encounter Closed Date Diagnosis/Indication Diagnosis SNOMED-CT Code Diagnosis ICD10 Code Diagnosis Note [id number] Musa Dietrich PA-C [facility] ([facility] [facility]) [address] [place] [address] 02/04/2019 10:38:03 02/05/2019 08:59:14 Adult health examination [id number] Z00.00 We will check some routine labs today. I encouraged pt to eat low-fat, low-salt diet and exercise most days of the week. Mixed anxi ety and depressive disorder 503462394 F41.8 Discussed pt's care with Dr. Menard, who advised switching to a longer acting benzo and ultimately tapering off the medication when Brittney is comfortabl e. I have not been able to reach Brittney, but have LVM requesting she call us to discuss. Kay huizar, can follow up with psych if she is not comfortabl e switching medication s. [id number] Andrew Velazco DO [facility] [place] [facility] [place] [address] [place] [address] 01/29/2024 14:50:27 01/29/2024 16:18:49 Adult health examination [id number] Z00.00 routine labmammogr am needs to be orderedcol onoscopy Depressive disorder 3378 9007 F32.A chronic conditiona t goalescita lopram/Diallo apro 10 mg Generalize d anxiety disorder 21088724 F41.1 chronic conditiona t goalalpraz olam 0.5 mg Morbid obesity 818166148 E66.01 healthy dietweight losschroni c conditionn ot at goal Smoker 77376291 F17.200 recommend cessationd iscussed Headache 60179451 R51.9 right sidedfront alhas ocular migraine diagnosisa dd nurtec 75 mg samples given [id number] Andrew Velazco DO [facility] [place] [facility] [place] [address] [facility] [address] [place] [address] 05/08/2024 11:23:28 05/09/2024 10:21:24 Cough 47910764 R05.9 [address] [facility] Smoker 11231065 F17.200 recommend cessationd iscussed Morbid obesity 117606738 E66.01 healthy dietweight losschroni c conditionn ot at goal Health Concerns Section Related Observation LastModified by Organization Detai ls LastModified Time None Recorded Concern Status LastModified by Organization Details LastModified Time None Recorded Advance Directives Directive None Recorded Payers Encounter Date Sequence Insurance Name Policy Number Policy Centeno Covered Member ID Centeno Member ID Guarantor Name 02/04/2019 1 [facility] - DOS PRIOR TO 2021 (MEDICAID REPLACEMENT - HMO) Brittney Ramsey [id number] Brittney Ageeteeguma 01/29/2024 1 [facility] (MEDICAID HMO) [id number] Brittney Versteegt [id number] Brittney Versteegt 05/08/2024 1 [facility] (HMO) [id number] Brittney Sorto Versteegt [id number] Brittney Versteegt Notes Date Note Type Note Provider Name and Address Organization Details Recorded Time 02/04/2019 text/html Brittney is here toda y to establish care. She has been diagnosed with mixed anxiety and depressive disorder by Dr. Pinto, her previous PCP, and has been treated with Escitalopram 10mg daily and Alprazolam 0.5mg daily. She has achieved good symptomatic control with this regimen, but occasionally feels her depression gets the best of her. She states she is able to work through these emotions and denies SI/HI. She has no other concerns at this time. Musa Dietrich PA-C Attn: Accounting,[address] [facility], [place], [address], [facility] 02/04/2019 14:43:39 01/29/2024 text/html establish care Andrew Velazco DO Attn: Accounting,[address] [facility], [place], [address], [facility] 01/29/2024 18:25:25 05/08/2024 text/html frontal headachecoughsore throatstarted 8 days Andrew Velazco DO Attn: Accounting,[address] [place], [address], [facility] 05/08/2024 14:21:41 OBGyn Episode No OBEpisode recorded.
--- OUTSIDE RECORDS SUMMARY | 2024-10-29 16:01 | XMS_ITS | Encounter Summary ---
Author Organization [facility] Healthcare Address [address] [place] [address] Care Team Providers Care Mussel Farmer Name Role Phone Andrew Velazco DO Primary Care Provider + Encounter Details Date Type Department Care Team (Late st Contact Info) Description 10/24/2023 Orders Only [facility] [address] [place] [id number] Scanning, Provider Social History Tobacco Use Types Packs/Day Years Used Date Smoking Tobacco: Every Day Cigarettes Smokeless Tobacco: Never AUDIT-C Answer Date Recorded Q1: How often [...] on file 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 Gender Identity Not on file Sexual Orientation Not on file documented as of this encounter Plan of Treatment Not on file documented as of this encounter Procedures Procedure Name Priority Date/Time Associated Diagnosis Comments SCAN - RADIOLOGY/IMAGING 10/24/2023 documented in this encounter Results * SCAN - RADIOLOGY/IMAGING (10/24/2023) Anatomical Region Laterality Modality Other us Provider Scanning Final Result documented in this encounter Visit Diagnoses Not on filedocumented in this encounter Care Teams Mussel Farmer Relationship Specialty Start Date End Date Andrew Velazco DO PCP - General Family Medicine 04/04/23 documented as of this encounter
--- OUTSIDE RECORDS SUMMARY | 2024-10-29 16:01 | XMS_ITS | Encounter Summary ---
Author Organization [facility] Address [address] [place] [address] Care Team Providers Care Clinical Research Manager Name Role Phone Sanjay Gallagher MD Primary Care Provider [phone] Encounter Details Date Type Department Care Team (Late st Contact Info) Description 01/22/2022 MyChart Message Enc [facility] Family Medicine - [place] [address] [facility], [address] [place] [address] Sanjay Gallagher MD [address] [place], [place] [id number] Swollen legs... 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 documented as of this encounter Progress Notes * Sanjay Gallagher MD - 01/22/2022 1:15 PM CDT Needs appointment for treatments, I am unsure what all has happened at the ER at this time if they are concerned for DVT * Sanjay Gallagher MD - 01/22/2022 9:06 AM CDT Doesn't look like cellulitis, looks like stasis dermatitis from the swelling, recommend followup with the US evaluation, can followup here after documented in this encounter Plan of Treatment Not on file documented as of this encounter Visit Diagnoses Not on filedocumented in this encounter Additional Health Concerns Assessment Noted Time PHQ-9 Depression Total Score: 18 022 4:54 PM WATERSIDE WORKER documented as of this encounter Care Teams Clinical Research Manager Relationship Specialty Start Date End Date Sanjay Gallagher MD [address] [address] [place] [address] PCP - General FAMILY PRACTICE 02/13/19 04/02/23 documented as of this encounter
--- OUTSIDE RECORDS SUMMARY | 2024-10-29 16:01 | XMS_ITS | Clinical Summary ---
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 Gender Identity Not on file Sexual Orientation Not on file Obstetrics History Last Filed Vital Signs Vital Sign Reading [...] 07/08/2023 1:33 PM CDT Plan of Treatment Health Maintenance Due Date Last Done Comments Breast Cancer Screening-Mammogram 1972 Cervical Cancer Screening 1972 Colon Cancer Screening-Colonoscopy 1972 Hepatitis C Screening 1972 Hepatitis B Screening 1990 Zoster Vaccine (1 of 2) 2022 Depression Screening 04/01/2024 04/01/2023 Regular Well Visit/Exam 18-64 04/01/2024 04/01/2023 Covid-19 Vaccine (4 - 2023-2 5 season) 2024 10/03/2021, 02/14/2021, 01/24/2021 Influenza Vaccine (#1) 2024 2, 08/10/2019 DTaP/Tdap/Td Vaccine (2 - Td or Tdap) 08/10/2029 08/10/2019 Pneumococcal vaccine <65 (2 of 2 - PCV) 08/17/2037 08/10/2019 Postponed from 08/10 (Insurance / Financial) Insurance [facility] [place] Care Teams Yarn Wrapper Relationship Specialty Start Date End Date Andrew Velazco DO PCP - General Family Medicine 04/04/23
[2024-10-29 16:35] VITALS: BP 128/64; PULSE 68; RESP 18; TEMP 36.4; O2SAT 100
--- NOTE | 2024-10-29 16:53 | ED_ITS ---
HPI - Chest Pain General Chief Complaint: Chest Pain <Shira Jaramillo PA-C - Last Filed: 10/30/24 17:56> Stated Complaint: chest pain lower L x4 weeks <Shira Jaramillo PA-C - Last Filed: 10/30/24 17:56> Time Seen by Provider: 10/29/24 16:53 <Shira Jaramillo PA-C - Last Filed: 10/30/24 17:56> Focused HPI: This is a 54 year old female that presents to the ER for chest pain. Reports the pain runs underneath her ribs on the left side. Reports recently recovering from the flu. Reports now her pain has worsened and is radiating to her back. Reports she was not able to work due to pain. Reports associated shortness of breath and lower extremity edema. She is a smoker GENERAL: Well-appearing, well-nourished, and in no acute distress. HEAD: Normocephalic, atraumatic. CHEST: Clear to auscultation. ?No respiratory distress. HEART: Regular rate and rhythm.? NEURO: ?Alert and oriented x3. Patient screened in triage and initial orders placed.? ?Additional care and disposition to be based upon?diagnostic testing and treatment. <Shira Jaramillo PA-C - Last Filed: 10/30/24 17:56> Focused HPI: This is a 54 year old female that presents to the ER for chest pain. Reports the pain runs underneath her ribs on the left side. Reports recently recovering from the flu. Reports now her pain has worsened and is radiating to her back. Reports she was not able to work due to pain. Reports associated shortness of breath and lower extremity edema. She is a cigarette smoker. GENERAL: Well-appearing, well-nourished, and in no acute distress. HEAD: Normocephalic, atraumatic. CHEST: Clear to auscultation. ?No respiratory distress. HEART: Regular rate and rhythm.? NEURO: ?Alert and oriented x3. Patient screened in triage and initial orders placed.? ?Additional care and disposition to be based upon?diagnostic testing and treatment. <Alley Roca APRN - Last Filed: 10/30/24 00:36> History of Present Illness HPI narrative: I agree with the assessment and documentation of Shira Jaramillo PA-C. < Alley Roca APRN - Last Filed: 10/30/24 00:36> Related Data Allergies/Adverse Reactions: Allergies Allergy/AdvReac Type Severity Reaction Status Date / Time latex Allergy Unknown Rash Verified 10/29/24 23:39 <Shira Jaramillo PA-C - Last Filed: 10/30/24 17:56> Review of Systems 2 Review of Systems: All systems reviewed & are unremarkable except as noted in HPI and below <Alley Roca APRN - Last Filed: 10/30/24 00:36> [facility] Social History Social History: Social History Gender identity (if verbalized by the patient): Female <Shira Jaramillo PA-C - Last Filed: 10/30/24 17:56> Exam 2 Narrative: GENERAL: Well appearing, obese, non-toxic, in no acute distress. HEAD: Normocephalic, atraumatic. NECK: Supple. No adenopathy, no masses. RESPIRATORY: Airway patent, respirations nonlabored. Clear to auscultation bilaterally, no rales, rhonchi, wheezing. CARDIOVASCULAR: Regular rate and rhythm without murmurs, rubs, or gallops. Peripheral pulses 2+ and equal bilaterally. Mild bilateral edema. ABDOMINAL: Soft, nontender with palpation, nondistended, no hepatosplenomegaly. Normoactive BS. MUSCULOSKELETAL: Moves all extremities. Strength/ROM intact without gross deformities. SKIN: Warm, dry, normal color. No rashes. NEURO: A&O X3. Speech clear. Cranial nerves II-XII grossly intact. Steady gait. No ataxic movements. PSYCHIATRIC: Appropriate mood and affect. Normal interaction. <Alley Roca APRN - Last Filed: 10/30/24 00:36> Course Vital Signs Vital signs: Vital Signs Temperature 97.6 F 10/29/24 16:35 Pulse Rate 68 10/29/24 16:35 Respiratory Rate 18 10/29/24 16:35 Blood Pressure 128/64 10/29/24 16:35 Pulse Oximetry 100 10/29/24 16:35 Oxygen Delivery Room Air 10/29/24 16:35 Temperature 97.8 F 10/29/24 20:36 Pulse Rate 62 10/30/24 00:36 Respiratory Rate 19 10/30/24 00:36 Blood Pressure 130/81 10/30/24 00:36 Pulse Oximetry 98 10/30/24 00:36 Oxygen Delivery Room Air 10/29/24 21:28 <Shira Jaramillo PA-C - Last Filed: 10/30/24 17:56> Vital Signs Temperature 97.6 F 10/29/24 16:35 Pulse Rate 68 10/29/24 16:35 Respiratory Rate 18 10/29/24 16:35 Blood Pressure 128/64 10/29/24 16:35 Pulse Oximetry 100 10/29/24 16:35 Oxygen Delivery Room Air 10/29/24 16:35 Temperature 97.8 F 10/29/24 20:36 Pulse Rate 62 10/30/24 00:36 Respiratory Rate 19 10/30/24 00:36 Blood Pressure 130/81 10/30/24 00:36 Pulse Oximetry 98 10/30/24 00:36 Oxygen Delivery Room Air 10/29/24 21:28 <Alley Roca, MARSHA - Last Filed: 10/30/24 00:36> MDM - Chest Pain MDM Narrative Medical decision making narrative: This is a 54 year old female that presents to the ER for chest pain. Reports the pain runs underneath her ribs on the left side. Reports recently recovering from the flu. Reports now her pain has worsened and is radiating to her back. Reports she was not able to work due to pain. Reports associated shortness of breath and lower extremity edema. She is a cigarette smoker. Pt endorses sinusitis since she had the flu in August. Labs Ordered: CBC, CMP, proBNP, TSH, troponin, COVID/flu/RSV, PTT, INR, D- dimer, lipase Imaging Ordered: CTA chest PE abdomen pelvis, chest x-ray Medications Ordered: 1 L normal saline IV bolus, GI cocktail, aspirin 324 mg p.o. Results: Patient's chest x-ray indicated no acute abnormalities, patient's CT chest PE abdomen pelvis scan indicates The lungs demonstrate mild atelectasis. There are a few nodules in right lung measuring up to 4 mm, likely benign. No pleural effusion. The heart size is normal. No pericardial effusion. There is no pulmonary embolus. There is mild chronic anterior wedging of multiple vertebral bodies. There is moderate thoracic spondylosis and severe cervical spondylosis. CT abdomen and pelvis: There is diffuse hepatic steatosis. The gallbladder, spleen, pancreas, and adrenal glands are normal. There are cysts in the kidneys measuring up to 10 mm on the right. There are no dilated loops of bowel. The appendix is not visualized. There are no pathologically enlarged lymph nodes. There is no free intraperitoneal fluid. There are chronic bilateral L5 pars defects. There is severe lumbar spondylosis. Diagnosis: Diffuse hepatic steatosis, GERD Risks: HEART score: low risk HEART Pathway for Early Discharge in Acute Chest Pain from [employer] on 10/30/2024 All calculations should be rechecked by clinician prior to use RESULT SUMMARY: 3 points HEART Pathway Score Low risk 0.9-1.7% 30-day MACE Repeat troponin at 3 hours and if negative, discharge home with outpatient follow-up. INPUTS: History ?> 1 = Moderately suspicious EKG ?> 0 = Normal Age ?> 1 = 45-64 Risk factors ?> 1 = 1-2 risk factors Initial troponin ?> 0 = <=Normal limit Consults: none necessary Patient Education/Shared MDM: Results shared with patient. She endorses improvement following medication administration. Patient strongly advised to maintain hydration status upon discharge and follow-up with her PCP. She will be discharged home with prescription for Pepcid 40mg PO (previously prescribed 20mg PO), Prilosec, Flonase, and Prednisone PO (for sinusitis) Strict return precautions provided. Patient verbalized understanding is in agreement with plan. Vital signs stable at time of discharge. All questions answered. <Alley Roca APRN - Last Filed: 10/30/24 00:36> Differential Diagnosis Differential diagnosis: Likely atypical chest pain, st elevation myocardial infarction, costochondritis, chest pain and other (pneumonia, PE) <Alley Roca APRN - Last Filed: 10/30/24 00:36> Lab Data Attestation: I reviewed the patient's lab results. <Alley Roca APRN - Last Filed: 10/30/24 00:36> Result diagrams: 10/29/24 17:04 10/29/24 17:04 <Shira Jaramillo PA-C - Last Filed: 10/30/24 17:56> Labs: Lab Results 10/29/24 10/29/24 10/29/24 Range/Units 17:04 17:04 20:43 WBC 10.0 (4.5-10.0) K/mm3 RBC 4.61 (4.2-5.4) M/mm3 Hgb 13.5 (12.0-15.0) g/dL Hct 41.9 (37.0-47.0) % MCV 90.9 (80-100) fl MCH 29.3 (26-34) pg MCHC 32.2 (32-36) g/dl RDW 13.2 (11.5-14.5) % Plt Count 297 (150-375) k/mm3 MPV 11.3 H (7.4-10.4) fl Immature Gran % (Auto) 0.5 (0-0.5) % Neut % (Auto) 59.4 (45.5-73.1) % Lymph % (Auto) 31.5 (18.3-44.2) % [place] % (Auto) 5.5 (2.6-8.5) % Eos % (Auto) 2.2 (0-4.4) % Baso % (Auto) 0.9 (0.2-1.2) % Lymph # (Auto) 3.15 (0.9-3.2) K/mm3 [place] # (Auto) 0.6 (0.1-0.6) K/mm3 Eos # (Auto) 0.2 (0-0.3) K/mm3 Baso # (Auto) 0.1 (0.0-0.1) K/mm3 Abs Immat Gran (auto) 0.05 H (0.00-0.031) K/mm3 Absolute Neuts (auto) 5.9 (1.3-6.7) K/mm3 Absolute Nucleated RBC 0.000 (0.0-0.012) K/mm3 Nucleated RBC % 0.0 (0.0-0.2) % PT 13.1 (11.1-14.7) Seconds INR 1.0 APTT 23.7 (22.3-36.8) Seconds D-Dimer 1.10 H Cancelled (<0.48) ug/mL Sodium 139 (137-145) mmol/L Potassium 3.6 (3.4-5.0) mmol/L Chloride 104 (98-107) mmol/L Carbon Dioxide 27 (22-30) mmol/L Anion Gap 8 (4-12) mmol/L BUN 10 (7-17) mg/dL Creatinine 0.57 L (0.7-1.0) mg/dL Estim Creat Clear Calc 125 ml/min Estimated GFR > 60 (59 - ) Glucose 80 (65-110) mg/dL Calcium 9.5 (8.4-10.2) mg/dL Total Bilirubin 0.7 (0.2-1.3) mg/dL AST 28 (14-36) U/L ALT 29 (6-35) U/L Alkaline Phosphatase 55 (38-126) U/L Troponin I < 0.012 < 0.012 (0.000-0.034) ng/mL NT-Pro-B Natriuret Pep 246 H (19.9-100) pg/mL Total Protein 7.0 (6.3-8.2) g/dL Albumin 4.3 (3.5-5.1) g/dL Lipase 81 (23-300) U/L TSH (Reflex) 1.930 (0.465-4.68) uIU/mL Influenza A (RT-PCR) (Negative) Influenza B (RT-PCR) (Negative) RSV (RT-PCR) (Negative) SARS-CoV-2 RNA (RT-PCR) (Negative) 10/29/24 Range/Units 23:07 WBC (4.5-10.0) K/mm3 RBC (4.2-5.4) M/mm3 Hgb (12.0-15.0) g/dL Hct (37.0-47.0) % MCV (80-100) fl MCH (26-34) pg MCHC (32-36) g/dl RDW (11.5-14.5) % Plt Count (150-375) k/mm3 MPV (7.4-10.4) fl Immature Gran % (Auto) (0-0.5) % Neut % (Auto) (45.5-73.1) % Lymph % (Auto) (18.3-44.2) % [place] % (Auto) (2.6-8.5) % Eos % (Auto) (0-4.4) % Baso % (Auto) (0.2-1.2) % Lymph # (Auto) (0.9-3.2) K/mm3 [place] # (Auto) (0.1-0.6) K/mm3 Eos # (Auto) (0-0.3) K/mm3 Baso # (Auto) (0.0-0.1) K/mm3 Abs Immat Gran (auto) (0.00-0.031) K/mm3 Absolute Neuts (auto) (1.3-6.7) K/mm3 Absolute Nucleated RBC (0.0-0.012) K/mm3 Nucleated RBC % (0.0-0.2) % PT (11.1-14.7) Seconds INR APTT (22.3-36.8) Seconds D-Dimer (<0.48) ug/mL Sodium (137-145) mmol/L Potassium (3.4-5.0) mmol/L Chloride (98-107) mmol/L Carbon Dioxide (22-30) mmol/L Anion Gap (4-12) mmol/L BUN (7-17) mg/dL Creatinine (0.7-1.0) mg/dL Estim Creat Clear Calc ml/min Estimated GFR (59 - ) Glucose (65-110) mg/dL Calcium (8.4-10.2) mg/dL Total Bilirubin (0.2-1.3) mg/dL AST (14-36) U/L ALT (6-35) U/L Alkaline Phosphatase (38-126) U/L Troponin I (0.000-0.034) ng/mL NT-Pro-B Natriuret Pep (19.9-100) pg/mL Total Protein (6.3-8.2) g/dL Albumin (3.5-5.1) g/dL Lipase (23-300) U/L TSH (Reflex) (0.465-4.68) uIU/mL Influenza A (RT-PCR) Negative (Negative) Influenza B (RT-PCR) Negative (Negative) RSV (RT-PCR) Negative (Negative) SARS-CoV-2 RNA (RT-PCR) Negative (Negative) <Shira Jaramillo PA-C - Last Filed: 10/30/24 17:56> Lab Results 10/29/24 10/29/24 10/29/24 Range/Units 17:04 17:04 20:43 WBC 10.0 (4.5-10.0) K/mm3 RBC 4.61 (4.2-5.4) M/mm3 Hgb 13.5 (12.0-15.0) g/dL Hct 41.9 (37.0-47.0) % MCV 90.9 (80-100) fl MCH 29.3 (26-34) pg MCHC 32.2 (32-36) g/dl RDW 13.2 (11.5-14.5) % Plt Count 297 (150-375) k/mm3 MPV 11.3 H (7.4-10.4) fl Immature Gran % (Auto) 0.5 (0-0.5) % Neut % (Auto) 59.4 (45.5-73.1) % Lymph % (Auto) 31.5 (18.3-44.2) % [place] % (Auto) 5.5 (2.6-8.5) % Eos % (Auto) 2.2 (0-4.4) % Baso % (Auto) 0.9 (0.2-1.2) % Lymph # (Auto) 3.15 (0.9-3.2) K/mm3 [place] # (Auto) 0.6 (0.1-0.6) K/mm3 Eos # (Auto) 0.2 (0-0.3) K/mm3 Baso # (Auto) 0.1 (0.0-0.1) K/mm3 Abs Immat Gran (auto) 0.05 H (0.00-0.031) K/mm3 Absolute Neuts (auto) 5.9 (1.3-6.7) K/mm3 Absolute Nucleated RBC 0.000 (0.0-0.012) K/mm3 Nucleated RBC % 0.0 (0.0-0.2) % PT 13.1 (11.1-14.7) Seconds INR 1.0 APTT 23.7 (22.3-36.8) Seconds D-Dimer 1.10 H Cancelled (<0.48) ug/mL Sodium 139 (137-145) mmol/L Potassium 3.6 (3.4-5.0) mmol/L Chloride 104 (98-107) mmol/L Carbon Dioxide 27 (22-30) mmol/L Anion Gap 8 (4-12) mmol/L BUN 10 (7-17) mg/dL Creatinine 0.57 L (0.7-1.0) mg/dL Estim Creat Clear Calc 125 ml/min Estimated GFR > 60 (59 - ) Glucose 80 (65-110) mg/dL Calcium 9.5 (8.4-10.2) mg/dL Total Bilirubin 0.7 (0.2-1.3) mg/dL AST 28 (14-36) U/L ALT 29 (6-35) U/L Alkaline Phosphatase 55 (38-126) U/L Troponin I < 0.012 < 0.012 (0.000-0.034) ng/mL NT-Pro-B Natriuret Pep 246 H (19.9-100) pg/mL Total Protein 7.0 (6.3-8.2) g/dL Albumin 4.3 (3.5-5.1) g/dL Lipase 81 (23-300) U/L TSH (Reflex) 1.930 (0.465-4.68) uIU/mL Influenza A (RT-PCR) (Negative) Influenza B (RT-PCR) (Negative) RSV (RT-PCR) (Negative) SARS-CoV-2 RNA (RT-PCR) (Negative) 10/29/24 Range/Units 23:07 WBC (4.5-10.0) K/mm3 RBC (4.2-5.4) M/mm3 Hgb (12.0-15.0) g/dL Hct (37.0-47.0) % MCV (80-100) fl MCH (26-34) pg MCHC (32-36) g/dl RDW (11.5-14.5) % Plt Count (150-375) k/mm3 MPV (7.4-10.4) fl Immature Gran % (Auto) (0-0.5) % Neut % (Auto) (45.5-73.1) % Lymph % (Auto) (18.3-44.2) % [place] % (Auto) (2.6-8.5) % Eos % (Auto) (0-4.4) % Baso % (Auto) (0.2-1.2) % Lymph # (Auto) (0.9-3.2) K/mm3 [place] # (Auto) (0.1-0.6) K/mm3 Eos # (Auto) (0-0.3) K/mm3 Baso # (Auto) (0.0-0.1) K/mm3 Abs Immat Gran (auto) (0.00-0.031) K/mm3 Absolute Neuts (auto) (1.3-6.7) K/mm3 Absolute Nucleated RBC (0.0-0.012) K/mm3 Nucleated RBC % (0.0-0.2) % PT (11.1-14.7) Seconds INR APTT (22.3-36.8) Seconds D-Dimer (<0.48) ug/mL Sodium (137-145) mmol/L Potassium (3.4-5.0) mmol/L Chloride (98-107) mmol/L Carbon Dioxide (22-30) mmol/L Anion Gap (4-12) mmol/L BUN (7-17) mg/dL Creatinine (0.7-1.0) mg/dL Estim Creat Clear Calc ml/min Estimated GFR (59 - ) Glucose (65-110) mg/dL Calcium (8.4-10.2) mg/dL Total Bilirubin (0.2-1.3) mg/dL AST (14-36) U/L ALT (6-35) U/L Alkaline Phosphatase (38-126) U/L Troponin I (0.000-0.034) ng/mL NT-Pro-B Natriuret Pep (19.9-100) pg/mL Total Protein (6.3-8.2) g/dL Albumin (3.5-5.1) g/dL Lipase (23-300) U/L TSH (Reflex) (0.465-4.68) uIU/mL Influenza A (RT-PCR) Negative (Negative) Influenza B (RT-PCR) Negative (Negative) RSV (RT-PCR) Negative (Negative) SARS-CoV-2 RNA (RT-PCR) Negative (Negative) <Alley Roca, M1A1 [employer] - Last Filed: 10/30/24 00:36> Imaging Data Attestation: I personally reviewed and interpreted this imaging study as follows: < Alley Roca APRN - Last Filed: 10/30/24 00:36> Radiologist's impression: Impressions Chest X-Ray 10/29/24 16:29 IMPRESSION: 1. Mild atelectasis in left lower lung zone. Chest/Abdomen/Pelvis CTA 10/29/24 21:57 IMPRESSION: 1. No pulmonary embolus. 2. Diffuse hepatic steatosis. <Alley Roca APRN - Last Filed: 10/30/24 00:36> Critical Care Time Critical Care Time Critical Care Time: No <Shira Jaramillo PA-C - Last Filed: 10/30/24 17:56> Discharge Plan Discharge Clinical Impression: Atypical chest pain, Gastric reflux <Shira Jaramillo PA-C - Last Filed: 10/30/24 17:56> Patient Disposition: Home, Self-Care <Shira Jaramillo PA-C - Last Filed: 10/30/24 17:56> Condition: Stable <Shira Jaramillo PA-C - Last Filed: 10/30/24 17:56> Instructions: Antibiotic Form, Chest Pain (ED), GERD (Gastroesophageal Reflux Disease) (ED) <Shira Jaramillo PA-C - Last Filed: 10/30/24 17:56> Additional Instructions: Please return to the ER with an worsening symptoms. Follow-up with primary care provider in the next 2-3 days. Take all regularly scheduled medications as prescribed. The steroids may cause your blood sugars to raise temporarily. Please take all new medications as prescribed. <Shira Jaramillo PA-C - Last Filed: 10/30/24 17:56> Patient Language: Welsh <Shira Jaramillo PA-C - Last Filed: 10/30/24 17:56> Prescriptions: New famotidine [Pepcid] 20 mg tablet 20 mg PO BID Qty: 30 0RF omeprazole 40 mg capsule,delayed release(DR/EC) 40 mg PO DAILY Qty: 20 0RF methylprednisolone [Medrol (Ivan)] 4 mg tablets,dose pack See Rx Instructions .ROUTE .COMPLEX Qty: 21 0RF Rx Instructions: for 6 days fluticasone propionate [24 Hour Allergy Relief] 50 mcg/actuation spray,suspension 2 spray intranasal DAILY Qty: 16 0RF Rx Instructions: administer into each nostril No Action azithromycin 250 mg tablet See Rx Instructions PO .COMPLEX Qty: 6 0RF Rx Instructions: For 250 mg dose pack: take 500 mg today (day 1), then 250 mg for 4 days (days 2-5) methylprednisolone [Medrol (Ivan)] 4 mg tablets,dose pack See Rx Instructions .ROUTE .COMPLEX Qty: 21 0RF Rx Instructions: orally per package directions methylprednisolone [Medrol (Ivan)] 4 mg tablets,dose pack See Rx Instructions .ROUTE .COMPLEX Qty: 21 0RF Rx Instructions: orally per package directions famotidine [Pepcid] 20 mg tablet 20 mg PO BID Qty: 14 0RF loratadine [Claritin] 10 mg tablet 10 mg PO DAILY PRN (Reason: allergy symptoms) Qty: 10 0RF <Shira Jaramillo PA-C - Last Filed: 10/30/24 17:56> Follow-up/Referrals: [place],Andrew Rasmussen MD [Primary Care Provider] - <Shira Jaramillo PA-C - Last Filed: 10/30/24 17:56> Stand Alone Forms: Work/School Release IP <Shira Jaramillo PA-C - Last Filed: 10/30/24 17:56> Time of Disposition: 00:37 <Shira Jaramillo PA-C - Last Filed: 10/30/24 17:56> 00:37 <Alley Roca APRN - Last Filed: 10/30/24 00:36>
[2024-10-29 17:18] LABS: Basophils Absolute Auto 0.1 K/mm3 (0.0-0.1); Basophils Percent Auto 0.9 % (0.2-1.2); Eosinophils Absolute Auto 0.2 K/mm3 (0-0.3); Eosinophils Percent Auto 2.2 % (0-4.4); Hematocrit 41.9 % (37.0-47.0); Hemoglobin 13.5 g/dL (12.0-15.0); Immature Granulocyte Absolute 0.05 K/mm3 (0.00-0.031); Immature Granulocyte Percent A 0.5 % (0-0.5); Lymphocytes Absolute Auto 3.15 K/mm3 (0.9-3.2); Lymphocytes Percent Auto 31.5 % (18.3-44.2); Mean Corpuscular HGB Conc 32.2 g/dl (32-36); Mean Corpuscular Hemoglobin 29.3 pg (26-34); Mean Corpuscular Volume 90.9 fl (80-100); Mean Platelet Volume 11.3 fl (7.4-10.4); Monocytes Absolute Auto 0.6 K/mm3 (0.1-0.6); Monocytes Percent Auto 5.5 % (2.6-8.5); Neutrophils Absolute Auto 5.9 K/mm3 (1.3-6.7); Neutrophils Percent Auto 59.4 % (45.5-73.1); Platelet Count Result 297 k/mm3 (150-375); Red Blood Count 4.61 M/mm3 (4.2-5.4); Red Cell Distribution Width 13.2 % (11.5-14.5)
[2024-10-29 17:21] LABS: Alanine Aminotransferase 29 U/L (6-35); Albumin Level 4.3 g/dL (3.5-5.1); Alkaline Phosphatase 55 U/L (38-126); Anion Gap 8 mmol/L (4-12); Aspartate Amino Transferase 28 U/L (14-36); Bilirubin,Total 0.7 mg/dL (0.2-1.3); Blood Urea Nitrogen 10 mg/dL (7-17); Calcium 9.5 mg/dL (8.4-10.2); Carbon Dioxide 27 mmol/L (22-30); Chloride 104 mmol/L (98-107); Estimated CRCL calculation 125 ml/min; Estimated Glomerular Filt Rate > 60; Glucose 80 mg/dL (65-110); Lipase 81 U/L (23-300); Potassium 3.6 mmol/L (3.4-5.0); Sodium 139 mmol/L (137-145)
[2024-10-29 17:23] LABS: Prothrombin Time 13.1 Seconds (11.1-14.7)
[2024-10-29 17:24] LABS: Partial Thromboplastin Time 23.7 Seconds (22.3-36.8)
[2024-10-29 17:32] LABS: Troponin I < 0.012 ng/mL (0.000-0.034)
[2024-10-29 20:36] VITALS: BP 144/89; PULSE 70; RESP 18; TEMP 36.6; O2SAT 97
[2024-10-29 21:16] LABS: Troponin I < 0.012 ng/mL (0.000-0.034)
[2024-10-29 21:28] VITALS: O2SAT 98
[2024-10-29 21:33] VITALS: BP 152/96; O2SAT 100
--- OUTSIDE RECORDS SUMMARY | 2024-10-29 21:48 | XMS_ITS | Clinical Summary ---
Author Organization [facility] Address [address] [place] [id number] Care Team Providers Care Bookmobile Driver Name Role Phone Unavailable Primary Care Provider Unavailabl e Allergies Active Allergy Reactions Criticality Noted Date Comments Latex Hives 05/07/2019 Medications furosemide 40 MG tabletIndicatio ns:Peripheral edema Take 1 tablet (40 mg total) by mouth daily as needed. 90 tablet 3 01/31/2022 Active escitalopram (LEXAPRO) 10 MG tabletIndicatio ns:Bipolar 2 disorder ([facility]) Take 1 tablet by mouth once daily 90 tablet 01/06/2023 Active ALPRAZolam (XANAX) 0.5 MG tabletIndicatio ns:Anxiety,Christos odiazepine dependence ([facility]) TAKE 1 TABLET BY MOUTH THREE TIMES DAILY NEEDED FOR ANXIETY 90 tablet 03/20/2023 Active Active Problems Problem Noted Date Diagnosed Date [facility] prescription benzodiazepine use 2022 Peripheral edema 01/31/2022 Bipolar 2 disorder ([facility]) 01/31/2022 Class 3 severe obesity due t o excess calories without serious comorbidity with body mass index (BMI) of 40.0 to 44.9 in adult ([facility]) 01/31/2022 Anxiety 10/03/2021 Resolved Problems Problem Noted Date Diagnosed Date Resolved Date Benzodiazepine dependence ([facility]) 01/31/2022 09/19/2022 Immunizations Name Administration Dates Next [...] CDT Gender Identity Female 09/13/2021 11:52 AM CIRCULATION REPRESENTATIVE Sexual Orientation Straight 09/13/2021 11 :52 AM CIRCULATION REPRESENTATIVE Last Filed Vital Signs Vital Sign Reading [...] (5' 6 ) 10/16/2019 10:4 4 AM CIRCULATION REPRESENTATIVE Body Mass Index 42.59 10/16/2019 10:44 AM CIRCULATION REPRESENTATIVE Plan of Treatment Health Maintenance Due Date Last Done Comments Colorectal Cancer Screening Colonoscopy (10 Years) 1972 PHQ-2 (Physician [place]) 1984 Hepatitis B Vaccines (1 of 3 [...] Screening wi th HPV 07/08/2024 PHQ-2 ([facility] [place]) 09/09/2024 DTaP, Tdap and Td Vaccines ( 2 - Td or Tdap) 08/10/2029 08/10/2019 Hepatitis C Completed 10/31/2021 Meningococcal B Vaccine Aged Out No l onger eligible based on patient's age to complete this topic Meningococcal Vaccine Aged Out No mildred leena eligible based on patient's age to complete this topic RSV Immunizations Under 20 Months Aged Out No longer eligible b ased on patient's age to complete this topic Procedures Procedure Name Priority Date/Time Associated Diagnosis Comments HEPATITIS C ANTIBODY W/RFX TO HCV RNA Routine 10/31/2021 1:16 PM CIRCULATION REPRESENTATIVE HPV MRNA E6/E7 Routine 07/08/2019 3:10 PM CDT CYTOPATH CERV/VAG THIN LAYER Routine 07/08/2019 12:00 AM CDT from Last 3 Months or Most Recently Relevant to Health Maintenance Results * HEPATITIS C ANTIBODY W/RFX TO HCV RNA (10/31/2021 1:16 PM CIRCULATION REPRESENTATIVE) HEPATITIS C AB NON-REACTI VE NON-REACT LORAINE [facility] SIGNAL TO CUTOFF 0.05 <[address] [facility] Comment: HCV antibody was non-reactive. There is no laboratory evidence of HCV infection. In most cases, no further action is required. However, if recent HCV exposure is suspected, a test for HCV RNA (test code 05090) is suggested. For additional information please refer to http://[employer]igi [place]/faq/MMW44o6 (This link is being provided for informational/ educational purposes only.) 10/31/2021 1:16 PM CIRCULATION REPRESENTATIVE 10/31/2021 1:19 PM CIRCULATION REPRESENTATIVE Narrative [facility] - 11/04/2021 9:51 PM CIRCULATION REPRESENTATIVE FASTING:YES FASTING: YES Sanjay Vega MD LABORATORY Final Result [facility] [address] [place] [address] * HPV MRNA E6/E7 (07/08/2019 3:10 PM CDT) HPV MRNA E6/E7 Not Detected NOT DETECTED 07/14/2019 7:55 AM CIRCULATION REPRESENTATIVE [facility] Comment: This test was performed using the APTIMA(R) HPV Assay ([employer] This assay detects E6/E7 viral messenger RNA (mRNA) from 14 high-risk HPV types (16,18,31,33,35,39,45,51, 52,56,58,59,66,68). For additional information please refer to: http://[employer].[place]/faq/XLY429m4 (This link is being provided for informational/ educational purposes only.) The analytical performance characteristics of this assay have been determined by [employer] [place], [place]. The modifications have not been cleared or approved by the FDA. This assay has been validated pursuant to the CLIA regulations and is used for clinical purposes. Test Performed by [facility], [facility], [address] [place] [address] Ortiz Paz M.D., Ph.D., Director of Laboratories , CLIA [id number] 07/08/2019 3:10 PM CDT Sanjay Vega MD PATHOLOGY/CYTOLOGY ORDERABLES Final Result [facility] [address] [place] [address], [place] [phone] * Cytopath Cerv/Vag Thin Layer (07/08/2019 12:00 AM CDT) COPATH REPORT [address] [phone] Department of Pathology Pathology Report Gynecological Cytology Report Patient Name: BRITTNEY RAMSEY : 1970 (Age: 48) Location: [facility] Gender: F Collected Date: 07/08/2019 Med Rec #: [id number] Date Received: 07/10/2019 Date Reported: 07/14/2019 Provider: SANJAY VEGA MD Final Cytologic Diagnosis Satisfactory for evaluation. Endocervical component not identified. Negative for Intraepithelial Lesion or Malignancy. High-risk HPV mRNA E6/E7 by [employer] assay (performed at [facility]) is reported as NOT DETECTED (see separate report for details). Electronically Signed Out By Oni Cee Source of Specimen(s) Cervical/Endocervi mango - Thin Prep Clinical History Screening, last Pap not provided. Z00.00, Z01.419 Date of Last Menstrual Period: [facility] Billing Fee Code(s): A: [address] [facility] 07/08/2019 07/10/2019 10: 25 AM CDT Comment:CERVICAL/ENDOCERVICA L - THIN PREP Sanjay Vega MD PATHOLOGY/CYTOLOGY ORDERABLES Final Result [facility] [address] [place] [id number], [place] [phone] from Last 3 Months or Most Recently Relevant to Health Maintenance Insurance [employer]
--- OUTSIDE RECORDS SUMMARY | 2024-10-29 21:48 | XMS_ITS | Encounter Summary ---
Author Organization [facility] Address [address] [place] [address] Care Team Providers Care Environmental Solutions Engineer Name Role Phone Sanjay Gallagher MD Primary Care Provider [phone] Encounter Details Date Type Department Care Team (Late st Contact Info) Description 10/07/2021 MyChart Message Enc [facility] Medical [facility] Family Medicine - [place] [address] [facility], [address] [place] [phone] Sanjay Gallagher MD [address] [place] [address] followup Social History Tobacco Use [...] CDT Gender Identity Female 09/13/2021 11:52 AM TRAVEL TRAILER COMPONENTS ASSEMBLER Sexual Orientation Straight 09/13/2021 11 :52 AM TRAVEL TRAILER COMPONENTS ASSEMBLER COVID-19 Exposure Response Date Recorded In the last month, have you been in contact with someone who was confirmed or suspected to have Coronavirus / COVID-19? No / Unsure 10/03/2021 2:08 PM TRAVEL TRAILER COMPONENTS ASSEMBLER documented as of this encounter Plan of Treatment Not on file documented as of this encounter Visit Diagnoses Not on filedocumented in this encounter Additional Health Concerns Assessment Noted Time PHQ-9 Depression Total Score: 18 022 4:54 PM TRAVEL TRAILER COMPONENTS ASSEMBLER documented as of this encounter Care Teams Environmental Solutions Engineer Relationship Specialty Start Date End Date Sajnay Gallagher MD [address] [address] [place] [address] PCP - General FAMILY PRACTICE 02/13/19 04/02/23 documented as of this encounter
--- OUTSIDE RECORDS SUMMARY | 2024-10-29 21:48 | XMS_ITS | Encounter Summary ---
Author Organization [facility] Address [address] [place] [address] Care Team Providers Care Boiler Tube Reamer Name Role Phone Sanjay Gallagher MD Primary Care Provider [phone] Encounter Details Date Type Department Care Team (Late st Contact Info) Description 02/08/2022 MyChart Message Enc [facility] Medical [facility] Family Medicine - [place] [address] [facility], [address] [place] [address] Sanjay Gallagher MD [address] [place], [place] [id number] Blood tests Social History Tobacco Use Types [...] CDT Gender Identity Female 09/13/2021 11:52 AM DIET CLERK Sexual Orientation Straight 09/13/2021 11 :52 AM DIET CLERK COVID-19 Exposure Response Date Recorded In the last 10 days, have yo u been in contact with someone who was confirmed or suspected to have Coronavirus/COVID-19? No / Unsure 01/31/2022 10:47 AM CDT documented as of this encounter Progress Notes * Araceli Ramirez RN - 02/09/2022 10:33 AM CDT Sent a detailed [facility] [employer] message with results and recommendations per Dr. Gallagher. Requested patient to call back to the office or respond via Mocapayhart with update on swelling. * Araceli Ramirez [...] Total Score: 18 10/03/ 022 4:54 PM DIET CLERK documented as of this encounter Care Teams Boiler Tube Reamer Relationship Specialty Start Date End Date Sanjay Gallagher MD [address] [address] PCP - General FAMILY PRACTICE 02/13/19 04/02/23 documented as of this encounter
--- OUTSIDE RECORDS SUMMARY | 2024-10-29 21:48 | XMS_ITS | Encounter Summary ---
Author Organization [facility] Facility Care Team Providers Care Freight Rate Clerk Name Role Phone Sanjay Gallagher MD Primary Care Provider + [phone] Andrew Velazco DO Primary Care Provider + Encounter Details Date Type Department Care Team (Latest Contact Info) Description 03/02/2014 Orders Only [facility] ProviderBere MD [address] [place] [address] Social History Tobacco Use Types Packs/Day Years Used Date Smoking Tobacco: Never Assessed Comments Unknown Sex and Gender Information Value Date Recorded Sex Assigned at Not on file Legal Sex Female 12:02 AM STUNT DRIVER Gender Identity Not on file Sexual Orientation [...] on filedocumented in this encounter Care Teams Freight Rate Clerk Relationship Specialty Start Date End Date Sanjay Gallagher MD [address] [facility] [address] [place] [address] PCP - General Family Practice 01/21/22 04/03/23 Andrew Velazco DO [facility] [address] PCP - General Family Medicine 04/04/23 documented as of this encounter
--- OUTSIDE RECORDS SUMMARY | 2024-10-29 21:48 | XMS_ITS | Encounter Summary ---
Author Organization [facility] Address [address] [place] [address] Care Team Providers Care Mold Parter Name Role Phone Sanjay Gallagher MD Primary Care Provider [phone] Encounter Details Date Type Department Care Team (Late st Contact Info) Description 01/04/2022 [employer] Message Enc [facility] Medical [facility] Family Medicine - [place] [address] , [address] [place] [phone] [facility] Provider controlled substance agreement Social [...] CDT Gender Identity Female 09/13/2021 11:52 AM SUPPORT SERVICES COORDINATOR Sexual Orientation Straight 09/13/2021 11 :52 AM SUPPORT SERVICES COORDINATOR documented as of this encounter Plan of Treatment Not on file documented as of this encounter Visit Diagnoses Not on filedocumented in this encounter Additional Health Concerns Assessment Noted Time PHQ-9 Depression Total Score: 18 022 4:54 PM SUPPORT SERVICES COORDINATOR documented as of this encounter Care Teams Mold Parter Relationship Specialty Start Date End Date Sanjay Gallagher MD [address] [facility] [address] [place] [address] PCP - General FAMILY PRACTICE 02/13/19 04/02/23 documented as of this encounter
--- OUTSIDE RECORDS SUMMARY | 2024-10-29 21:48 | XMS_ITS | Referral Summary ---
Author Organization [facility] Address [address] [place] [address] Care Team Providers Care Screen Handler Name Role Phone Andrew Velazco DO Primary [...] on file Legal Sex Female 12:02 AM ASSOCIATE DIRECTOR OF NURSING Gender Identity Not on file Sexual Orientation [...] Plan of Treatment Not on file Insurance [facility] Care Teams Screen Handler Relationship Specialty Start Date End Date Andrew Velazco DO PCP - General Family Medicine 04/04/23
--- OUTSIDE RECORDS SUMMARY | 2024-10-29 21:48 | XMS_ITS | Clinical Summary ---
Author Organization [facility] Address [address] [place] [address] Care Team Providers Care Peeler Operator Name Role Phone Andrew Velazco DO Primary [...] on file Legal Sex Female 12:02 AM SAFETY INTERN Gender Identity Not on file Sexual Orientation [...] Postponed from 08/10 (Insurance / Financial) Insurance [facility] [place] Care Teams Peeler Operator Relationship Specialty Start Date End Date Andrew Velazco DO PCP - General Family Medicine 04/04/23
--- OUTSIDE RECORDS SUMMARY | 2024-10-29 21:48 | XMS_ITS | Encounter Summary ---
Author Organization [facility] Address [address] [place] [address] Care Team Providers Care Reconciliation Manager Name Role Phone Andrew Velazco DO Primary Care Provider + Encounter Details Date Type Department Care Team (Late st Contact Info) Description 10/24/2023 Orders Only [facility] Health Information Management [address] [place] [address] Scanning, Provider Social History Tobacco Use [...] on file Legal Sex Female 12:02 AM SENIOR SOFTWARE QUALITY ANALYST Gender Identity Not on file Sexual Orientation [...] on filedocumented in this encounter Care Teams Reconciliation Manager Relationship Specialty Start Date End Date Andrew Velazco DO PCP - General Family Medicine 04/04/23 documented as of this encounter
--- OUTSIDE RECORDS SUMMARY | 2024-10-29 21:48 | XMS_ITS | Encounter Summary ---
Author Organization [facility] Address [address] [place] [address] Care Team Providers Care Gaming Associate Name Role Phone Sanjay Gallagher MD Primary Care Provider [phone] Encounter Details Date Type Department Care Team (Late st Contact Info) Description 01/22/2022 MyChart Message Enc [facility] Medical Group Family Medicine - [place] [address] [facility], [address] [place] [address] Sanjay Gallagher MD [address] [facility] [address] [place], [place] [phone] Swollen legs... help Social History Tobacco Use [...] CDT Gender Identity Female 09/13/2021 11:52 AM PRODUCTION DISPATCHER Sexual Orientation Straight 09/13/2021 11 :52 AM PRODUCTION DISPATCHER documented as of this encounter Progress Notes [...] Depression Total Score: 18 022 4:54 PM PRODUCTION DISPATCHER documented as of this encounter Care Teams Gaming Associate Relationship Specialty Start Date End Date Sanjay Gallagher MD [address] [address] [place] [address] PCP - General FAMILY PRACTICE 02/13/19 04/02/23 documented as of this encounter
--- OUTSIDE RECORDS SUMMARY | 2024-10-29 21:48 | XMS_ITS | Encounter Summary ---
Author Organization [facility] Address [address] [place] [address] Care Team Providers Care Control Inspector Name Role Phone Sanjay Gallagher MD Primary Care Provider [phone] Encounter Details Date Type Department Care Team (Late st Contact Info) Description 09/19/2022 [facility] Message Enc [facility] Medical Group Family Medicine - [place] [address] [facility], [address] [place] [address] Sanjay Gallagher MD [address] [facility] [address] [place] [address] Sedative dependency Social History Tobacco [...] CDT Gender Identity Female 09/13/2021 11:52 AM MEDICAL AND SCIENTIFIC ILLUSTRATOR Sexual Orientation Straight 09/13/2021 11 :52 AM MEDICAL AND SCIENTIFIC ILLUSTRATOR documented as of this encounter Plan of Treatment Not on file documented as of this encounter Visit Diagnoses Not on filedocumented in this encounter Additional Health Concerns Assessment Noted Time PHQ-9 Depression Total Score: 18 022 4:54 PM MEDICAL AND SCIENTIFIC ILLUSTRATOR documented as of this encounter Care Teams Control Inspector Relationship Specialty Start Date End Date Sanjay Gallagher MD [address] [facility] [address] [place] [address] PCP - General FAMILY PRACTICE 02/13/19 04/02/23 documented as of this encounter
--- OUTSIDE RECORDS SUMMARY | 2024-10-29 21:48 | XMS_ITS | Encounter Summary ---
Author Organization [facility] Address [address] [place] [address] Care Team Providers Care Automotive Lube Technician Name Role Phone Sanjay Gallagher MD Primary Care Provider [phone] Encounter Details Date Type Department Care Team (Late st Contact Info) Description 09/19/2022 [facility] Message Enc [facility] Medical Group Family Medicine - [place] [address] [facility], [address] [place] [address] Sanjay Gallagher MD [address] [facility] [address] [place] [address] Xanax Social History Tobacco Use [...] CDT Gender Identity Female 09/13/2021 11:52 AM HOME ECONOMICS EXTENSION WORKER Sexual Orientation Straight 09/13/2021 11 :52 AM HOME ECONOMICS EXTENSION WORKER documented as of this encounter Plan of Treatment Not on file documented as of this encounter Visit Diagnoses Not on filedocumented in this encounter Additional Health Concerns Assessment Noted Time PHQ-9 Depression Total Score: 18 022 4:54 PM HOME ECONOMICS EXTENSION WORKER documented as of this encounter Care Teams Automotive Lube Technician Relationship Specialty Start Date End Date Sanjay Gallagher MD [address] [facility] [address] [place] [address] PCP - General FAMILY PRACTICE 02/13/19 04/02/23 documented as of this encounter
[2024-10-29 22:02] VITALS: BP 163/94; O2SAT 100
[2024-10-29 22:32] VITALS: BP 120/64; PULSE 72; RESP 18; O2SAT 99
--- NOTE | 2024-10-29 23:08 | PC.NURSE ---
care and report given to MELINA Street. all questions answered.
[2024-10-29] MEDS: SODIUM CHLORIDE 0.9% IV 1,000 ML 999 ML IV CONT (23:11)
[2024-10-29 23:27] LABS: NT Pro B Type Natriuretic Pept 246 pg/mL (19.9-100)
[2024-10-30] MEDS: BELLADONNA ALK/PHENOB ELIX 10 ML, MAG HYDROX/ALUMINUM HYD/SIMETH 30 ML, LIDOCAINE 2% VI... PO (00:33)
[2024-10-30 00:35] LABS: Influenza A QL RT-PCR Negative (Negative); Influenza B QL RT-PCR Negative (Negative); RSV RNA, RT-PCR Negative (Negative); SARS-CoV-2 RNA PCR Negative (Negative)
[2024-10-30 00:36] VITALS: BP 130/81; PULSE 62; RESP 19; O2SAT 98
== END 2024-10-30 00:45 | disposition home or self-care (01) ==
PROVIDERS: Emergency Medicine; Emergency Provider Registered Nurse; PCP Family Medicine
DX: R07.89 Other chest pain (principal); K21.9 Gastro-esophageal reflux disease without esophagitis; Z20.822 Contact with and (suspected) exposure to COVID-19
CPT/HCPCS: 36415; 71046; 71275; 74177; 80053; 83690; 83880; 84443; 84484; 85025; 85380; 85610; 85730; 87637; 93005; 96360; 99284; A9270; J7030; Q9967

== ENCOUNTER 2024-12-04 09:14 | Emergency (ER) | payer OTHER, SELFPAY ==
[2024-12-04 09:43] VITALS: BP 134/85; PULSE 75; RESP 18; TEMP 37.1; O2SAT 97
--- OUTSIDE RECORDS SUMMARY | 2024-12-04 09:43 | XMS_ITS | Clinical Summary ---
Author Organization [facility] Address [address] [place] [address] Care Team Providers Care Hotel Services Sales Representative Name Role Phone Andrew Velazco DO Primary [...] on file Legal Sex Female 12:02 AM CURRICULUM ADVISORY TEACHER Gender Identity Not on file Sexual Orientation [...] Postponed from 08/10 (Insurance / Financial) Insurance [facility] [place] Care Teams Hotel Services Sales Representative Relationship Specialty Start Date End Date Andrew Velazco DO PCP - General Family Medicine 04/04/23
--- OUTSIDE RECORDS SUMMARY | 2024-12-04 09:43 | XMS_ITS | Referral Summary ---
Author Organization [facility] Address [address] [place] [address] Care Team Providers Care Napper Runner Name Role Phone Andrew Velazco DO Primary [...] on file Legal Sex Female 12:02 AM CORPORATE QUALITY ASSURANCE MANAGER Gender Identity Not on file Sexual Orientation [...] Plan of Treatment Not on file Insurance [facility] Care Teams Napper Runner Relationship Specialty Start Date End Date Andrew Velazco DO PCP - General Family Medicine 04/04/23
--- OUTSIDE RECORDS SUMMARY | 2024-12-04 09:44 | XMS_ITS | Encounter Summary ---
Author Organization [facility] Facility Care Team Providers Care Leather Currier Name Role Phone Sanjay Gallagher MD Primary Care Provider + [phone] Andrew Velazco DO Primary Care Provider + Encounter Details Date Type Department Care Team (Latest Contact Info) Description 03/02/2014 Orders Only [facility] ProviderBere MD [address] [place] [address] Social History Tobacco Use Types Packs/Day Years Used Date Smoking Tobacco: Never Assessed Comments Unknown Sex and Gender Information Value Date Recorded Sex Assigned at Not on file Legal Sex Female 12:02 AM RESIDENT CARE SPEC Gender Identity Not on file Sexual Orientation [...] on filedocumented in this encounter Care Teams Leather Currier Relationship Specialty Start Date End Date Sanjay Gallagher MD [address] [facility] [address] [place] [address] PCP - General Family Practice 01/21/22 04/03/23 Andrew Velazco DO [facility] [address] PCP - General Family Medicine 04/04/23 documented as of this encounter
--- OUTSIDE RECORDS SUMMARY | 2024-12-04 09:44 | XMS_ITS | Data Portability ---
[facility] Organization [facility] Address [address] [place] [address] Assessment No assessment recorded. Plan of Treatment Reminders Order Date Submit Date Provider Last Modified By Organization Details Last Modified Time Details Appointments None recorded. Lab BMP, serum or plasma 2023 [employer] [facility], [address], [address], [place], [address], 4 08:42:23 CBC 2023 024 [employer] [facility], [address], [address], [place], [address], 4 08:42:27 lipid panel, serum 2023 024 [employer] [facility], [address], [address], [place], [address], 4 08:42:20 TSH + free T4, serum 2023 024 [employer] [facility], [address], [address], [place], [address], 4 08:42:22 hepatic function panel, serum 2023 024 [employer] [facility], [address], [place], [address], 4 08:42:24 vitamin B12, serum 2023 024 [email or web address], [address], [address], [place], [address], 4 08:42:28 vitamin D, 25-hydroxy , total, serum 2023 024 [facility], [address], [address], [place], [address], 4 08:42:29 erythrocyt e sedimentat ion rate by westergren method 2023 024 [facility], [address], [address], [place], [address], 4 08:42:25 lipid panel, serum 2018 019 [facility], [address] [place], [place] [address]myesha Escudero, [address], [place], [address], 9 10:12:06 CMP, serum or plasma 2018 019 [facility], [address] [place], [place] [address]myesha Escudero, [address], [place], [address], 9 10:12:05 TSH, ultra-sens itive, serum 2018 019 [facility], [address] [place], [place] [address]myesha Escudero, [address], [place], [address], 9 10:12:07 HbA1c (hemoglobi n A1c), blood 2018 019 [facility], [address] [place], [place] [address]myesha Escudero, [address], [place], [address], 9 10:12:06 Referral gastroente rologist referral - Colonoscop y 2023 024 [email or web address] Serrano DO, [address] [facility], [place], [address], 16:38:05 Procedures None recorded. Surgeries None recorded. Imaging MAMMO, screening, digital, bilateral [address] (Mammography) , [address], [place], [address], 10:27:03 Medication Orders Zithromax Z-Ivan 250 mg tablet 2023 024 [email or web address] [facility], [address] [place], [address], 4 12:37:01 Tessalon Perles 100 mg capsule 2023 024 [email or web address] [facility], [address] [place], [address], 4 12:37:01 escitalopr am 10 mg tablet 2018 019 INTERFACE [facility], [address] [place], [address], 9 11:25:00 Patient TargetsNo targets recorded. 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) [address] [facility], [place], [address], 02/05/2019 10:12:05 02/05/2002/05/2019 CMP, serum or plasm a BUN 9 mg/dL 6-24 Not Available [facility] ([facility]) [address] [facility] [place], [address], 02/05/2019 10:12:05 02/05/20 19 02/05/2019 CMP, serum or plasm a creatinine 0.66 mg/dL 0.57-1 .00 Not Available [facility] ([facility]) [address] [facility] [place], [address], 02/05/2019 10:12:05 02/05/20 19 02/05/2019 CMP, serum or plasm a eGFR if nonafricn AM 106 mL/mi n/1.7 3 >59 Not Available [facility] ([facility]) [address] [facility] [place], [address], 02/05/2019 10:12:05 02/05/20 19 02/05/2019 CMP, serum or plasm a eGFR if africn AM 123 mL/mi n/1.7 3 >59 Not Available [facility] ([facility]) [address] [facility] [place], [address], 02/05/2019 10:12:05 02/05/20 19 02/05/2019 CMP, serum or plasm a BUN/creatini ne ratio 14 9-23 Not Available [facility] ([facility]) [address] [place], [address], 02/05/2019 10:12:05 02/05/20 19 02/05/2019 CMP, serum or plasm a sodium 142 mmol/ L 134-14 4 Not Available [facility] ([facility]) [address] [facility] [place], [address], 02/05/2019 10:12:05 02/05/20 19 02/05/2019 CMP, serum or plasm a potassium 4.3 mmol/ L 3.5-5. 2 Not Available [facility] ([facility]) [address] [place], [address], 02/05/2019 10:12:05 02/05/20 19 02/05/2019 CMP, serum or plasm a chloride 105 mmol/ L 96-106 Not Available [facility] ([facility]) [address] [facility] [place], [address], 02/05/2019 10:12:05 02/05/20 19 02/05/2019 CMP, serum or plasm a carbon dioxide, total 20 mmol/ L 20-29 Not Available [facility] ([facility]) [address] [facility] [place], [address], 02/05/2019 10:12:05 02/05/20 19 02/05/2019 CMP, serum or plasm a calcium 9.2 mg/dL 8.7-10 .2 Not Available [facility] ([facility]) [address] [place], [address], 02/05/2019 10:12:05 02/05/20 19 02/05/2019 CMP, serum or plasm a protein, total 6.5 g/dL 6.0-8. 5 Not Available [facility] ([facility]) [address] [place], [address], 02/05/2019 10:12:05 02/05/20 19 02/05/2019 CMP, serum or plasm a albumin 4.2 g/dL 3.5-5. 5 Not Available [facility] ([facility]) [address] [place], [address], 02/05/2019 10:12:05 02/05/20 19 02/05/2019 CMP, serum or plasm a globulin, total 2.3 g/dL 1.5-4. 5 Not Available [facility] ([facility]) [address] [place], [address], 02/05/2019 10:12:05 02/05/20 19 02/05/2019 CMP, serum or plasm a A/G ratio 1.8 1.2-2. 2 Not Available [facility] ([facility]) [address] [facility], [place], [address], 02/05/2019 10:12:05 02/05/20 19 02/05/2019 CMP, serum or plasm a bilirubin, total 0.4 mg/dL 0.0-1. 2 Not Available [facility] ([facility] [address] [facility] [place], [address], 02/05/2019 10:12:05 02/05/20 19 02/05/2019 CMP, serum or plasm a alkaline phosphatase 55 IU/L 39-117 Not Available [facility] [address] [facility] [place], [address], 02/05/2019 10:12:05 02/05/20 19 02/05/2019 CMP, serum or plasm a AST (SGOT) 17 IU/L 0-40 Not Available [facility] ([facility]) [address] [facility] [place], [address], 02/05/2019 10:12:05 02/05/2002/05/2019 CMP, serum or plasm a ALT (SGPT) 23 IU/L 0-32 Not Available [facility] ([facility]) [address] [facility] [place], [address], 02/05/2019 10:12:05 02/05/20 19 02/05/2019 lipid panel , serum cholesterol, total 126 mg/dL 100-19 9 Not Available [facility] ([facility]) [address] [facility] [place], [address], 02/05/2019 10:12:06 02/05/2002/05/2019 lipid panel , serum triglyceride s 78 mg/dL 0-149 Not Available [facility] ([facility]) [address] [facility] [place], [address], 02/05/2019 10:12:06 02/05/20 19 02/05/2019 lipid panel , serum HDL cholesterol 46 mg/dL >39 Not Available [facility] ([facility]) [address] [facility] [place], [address], 02/05/2019 10:12:06 02/05/20 19 02/05/2019 lipid panel , serum VLDL cholesterol mango 16 mg/dL 5-40 Not Available [facility] ([facility]) [address] [facility] [place], [address], 02/05/2019 10:12:06 02/05/20 19 02/05/2019 lipid panel , serum LDL cholesterol calc 64 mg/dL 0-99 Not Available [facility] (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) [address] [place], [address], 02/05/2019 10:12:06 02/05/20 19 02/05/2019 HbA1c (hemo globi n A1c), blood hemoglobin A1C 5.9 % 4.8-5. 6 above high normal Predi abete s: 5.7 - 6.4 Diabe amaury: >6.4 Glyce abiola contr ol for adult s with diabe amaury: <7.0 Not Available [facility] ([facility]) [address] [facility], [place], [address], 02/05/2019 10:12:06 02/05/2002/05/2019 TSH, ultra -sens itive , serum TSH 1.390 uIU/m L 0.450- 4.500 Not Available [facility] ([facility]) [address] [place], [address], 02/05/2019 10:12:07 02/05/20 24 02/06/2024 LIPID PANEL WITH RATIO S cholesterol, total 123 mg/dL <200 normal Not Available [facility] [address] [place], [address], 02/06/2024 08:42:20 02/05/20 24 02/06/2024 LIPID PANEL WITH RATIO S HDL cholesterol 44 mg/dL > or = 50 low Not Available [address], [address], 02/06/2024 08:42:20 02/05/20 24 02/06/2024 LIPID PANEL WITH RATIO S triglyceride s 68 mg/dL <150 normal Not Available [facility] [address], [address], 02/06/2024 08:42:20 02/05/20 24 02/06/2024 LIPID PANEL WITH RATIO S LDL-choleste rol 65 mg/dL _(mango c) normal Refer ence range : <100 Nimco able range <100 mg/dL for prima ry preve ntion ; <70 mg/dL for patie nts with CHD or diabe tic patie nts with > or = 2 CHD risk facto rs. LDL-C is now calcu lated using the Dory n-Hop [facility] arseniou angelina n, which is a valid ated novel jesús griggs than the Fried heather equat ion in the estim ation of LDL-C . Dory sinha SS et al. HUBER. 2013; 310(1 9): 2061- 2068 (http ://ed ucati on.Qu Robbie obrien KYTOSAN USAs. com/f aq/FA Q164) Not Available [place] [address] [place], [address], 02/06/2024 08:42:20 02/05/20 24 02/06/2024 LIPID PANEL WITH RATIO S chol/HDLC ratio 2.8 (calc ) <5.0 normal Not Available [address] [address] [place], [address], 02/06/2024 08:42:20 02/05/20 24 02/06/2024 LIPID PANEL WITH RATIO S LDL/HDL ratio 1.5 (calc ) Below avera ge Risk: <2.34 [place] ge Risk: 2.35- 4.12 Moder ate Risk: 4.13- 5.56 High Risk: >5.57 Not Available [address] [place], [address], 02/06/2024 08:42:20 02/05/20 24 02/06/2024 LIPID PANEL WITH RATIO S non HDL cholesterol 79 mg/dL _(mango c) <130 normal For patie nts with diabe amaury plus 1 major ASCVD risk facto r, treat ing to a non-H DL-C goal of <100 mg/dL (LDL- C of <70 mg/dL ) is consi shaned a thergeorgiana peuti c optio n. Not Available [address], [address], 02/06/2024 08:42:20 02/05/2002/06/2024 TSH+F REE T4 TSH 1.88 mIU/L normal Refer ence Range > or = 20 Years 0.40- 4.50 Pregn kashif Range s First trime ster 0.26- 2.66 Secon d trime ster 0.55- 2.73 Third trime ster 0.43- 2.91 Not Available [address], [address], 02/06/2024 08:42:21 02/05/2002/06/2024 TSH+F REE T4 T4, free 1.1 NG/dL 0.8-1. 8 normal Not Available [facility] [address] [address] [place], [address], 02/06/2024 08:42:21 02/05/2002/06/2024 BASIC METAB OLIC PANEL glucose 83 mg/dL 65-99 normal Fasti ng refer ence inter pranay Not Available [address] [place], [address], 02/06/2024 08:42:23 02/05/20 24 02/06/2024 BASIC METAB OLIC PANEL urea nitrogen (BUN) 11 mg/dL 7-25 normal Not Available [address], [address], 02/06/2024 08:42:23 02/05/20 24 02/06/2024 BASIC METAB OLIC PANEL creatinine 0.64 mg/dL 0.50-1 .03 normal Not Available [facility] [address], [address], 02/06/2024 08:42:23 02/05/20 24 02/06/2024 BASIC METAB OLIC PANEL eGFR 107 mL/mi n/1.7 3m2 > or = 60 normal Not Available [address], [address], 02/06/2024 08:42:23 02/05/20 24 02/06/2024 BASIC METAB OLIC PANEL BUN/creatini ne ratio SEE NOTE: (calc ) 6-22 Not Repor shy: BUN and Creat inine are withi n refer ence range . Not Available [facility] [address], [address], 02/06/2024 08:42:23 02/05/20 24 02/06/2024 BASIC METAB OLIC PANEL sodium 139 mmol/ L 135-14 6 normal Not Available [facility] [address], [address], 02/06/2024 08:42:23 02/05/20 24 02/06/2024 BASIC METAB OLIC PANEL potassium 4.3 mmol/ L 3.5-5. 3 normal Not Available [facility] [address], [address], 02/06/2024 08:42:23 02/05/20 24 02/06/2024 BASIC METAB OLIC PANEL chloride 104 mmol/ L 98-110 normal Not Available [facility] [address], [address], 02/06/2024 08:42:23 02/05/20 24 02/06/2024 BASIC METAB OLIC PANEL carbon dioxide 26 mmol/ L 20-32 normal Not Available [address], [address], 02/06/2024 08:42:23 02/05/20 24 02/06/2024 BASIC METAB OLIC PANEL calcium 8.9 mg/dL 8.6-10 .4 normal Not Available [address], [address], 02/06/2024 08:42:23 02/05/20 24 02/06/2024 HEPAT IC FUNCT ION PANEL protein, total 6.2 g/dL 6.1-8. 1 normal Not Available [address], [address], 02/06/2024 08:42:24 02/05/20 24 02/06/2024 HEPAT IC FUNCT ION PANEL albumin 4.1 g/dL 3.6-5. 1 normal Not Available [address], [address], 02/06/2024 08:42:24 02/05/20 24 02/06/2024 HEPAT IC FUNCT ION PANEL globulin 2.1 g/dL_ (calc ) 1.9-3. 7 normal Not Available [address], [address], 02/06/2024 08:42:24 02/05/20 24 02/06/2024 HEPAT IC FUNCT ION PANEL albumin/glob ulin ratio 2.0 (calc ) 1.0-2. 5 normal Not Available [address], [address], 02/06/2024 08:42:24 02/05/20 24 02/06/2024 HEPAT IC FUNCT ION PANEL bilirubin, total 0.6 mg/dL 0.2-1. 2 normal Not Available [address], [address], 02/06/2024 08:42:24 02/05/20 24 02/06/2024 HEPAT IC FUNCT ION PANEL bilirubin, direct 0.1 mg/dL < or = 0.2 normal Not Available [address], [address], 02/06/2024 08:42:24 02/05/20 24 02/06/2024 HEPAT IC FUNCT ION PANEL bilirubin, indirect 0.5 mg/dL _(mango c) 0.2-1. 2 normal Not Available [address], [address], 02/06/2024 08:42:24 02/05/20 24 02/06/2024 HEPAT IC FUNCT ION PANEL alkaline phosphatase 53 U/L 37-153 normal Not Available [address], [address], 02/06/2024 08:42:24 02/05/20 24 02/06/2024 HEPAT IC FUNCT ION PANEL AST 15 U/L 10-35 normal Not Available [address], [address], 02/06/2024 08:42:24 02/05/20 24 02/06/2024 HEPAT IC FUNCT ION PANEL ALT 19 U/L 6-29 normal Not Available [address], [address], 02/06/2024 08:42:24 02/05/20 24 02/06/2024 SED RATE BY MODIF IED CHAMP ISSAREN sed rate by modified marcusren 2 mm/h < or = 30 normal Not Available [address], [address], 02/06/2024 08:42:25 02/05/20 24 02/06/2024 CBC (H/H, RBC, INDIC ES, WBC, PLT) white blood cell count 8.2 thous and/u L 3.8-10 .8 normal Not Available [address], [address], 02/06/2024 08:42:27 02/05/2002/06/2024 CBC (H/H, RBC, INDIC ES, WBC, PLT) red blood cell count 4.69 zheng on/uL 3.80-5 .10 normal Not Available [address], [address], 02/06/2024 08:42:27 02/05/2002/06/2024 CBC (H/H, RBC, INDIC ES, WBC, PLT) hemoglobin 14.1 g/dL 11.7-1 5.5 normal Not Available [address], [address], 02/06/2024 08:42:27 02/05/2002/06/2024 CBC (H/H, RBC, INDIC ES, WBC, PLT) hematocrit 43.0 % 35.0-4 5.0 normal Not Available [address], [address], 02/06/2024 08:42:27 02/05/2002/06/2024 CBC (H/H, RBC, INDIC ES, WBC, PLT) MCV 91.7 fL 80.0-1 00.0 normal Not Available [address], [address], 02/06/2024 08:42:27 02/05/2002/06/2024 CBC (H/H, RBC, INDIC ES, WBC, PLT) MCH 30.1 pg 27.0-3 3.0 normal Not Available [address], [address], 02/06/2024 08:42:27 02/05/20 24 02/06/2024 CBC (H/H, RBC, INDIC ES, WBC, PLT) MCHC 32.8 g/dL 32.0-3 6.0 normal Not Available [address], [address], 02/06/2024 08:42:27 02/05/20 24 02/06/2024 CBC (H/H, RBC, INDIC ES, WBC, PLT) RDW 12.8 % 11.0-1 5.0 normal Not Available [address], [address], 02/06/2024 08:42:27 02/05/20 24 02/06/2024 CBC (H/H, RBC, INDIC ES, WBC, PLT) platelet count 246 thous and/u L 140-40 0 normal Not Available [address], [address], 02/06/2024 08:42:27 02/05/20 24 02/06/2024 CBC (H/H, RBC, INDIC ES, WBC, PLT) MPV 12.0 fL 7.5-12 .5 normal Not Available [address], [address], 02/06/2024 08:42:27 02/05/20 24 02/06/2024 VITAM IN B12 vitamin B12 487 pg/mL 200-11 00 normal Not Available [address], [address], 02/06/2024 08:42:28 02/05/2002/06/2024 VITAM IN D,25- [place],TO [...] /MS is recom koby d: order code 12759 (cody ents >2yrs ). See Note 1 Note 1 For addit ional infor dhruv santo e refer to http: //[facility] joe sinha.Que stDia gnost ics.c om/fa q/FAQ 199 (This link is being provi ded for infor priscilla groves/ educgeorgiana sorto purpo ses only. ) Not Available [facility] [address] [address], [place], [address], 02/06/2024 08:42:29 10/29/19 25 10/29/2024 XR, chest , 2 view No observ ation record ed. [address] [facility], [place], [address], 11/18/2024 09:28:00 10/30/1910/29/2024 CT, angio gram, chest + abdom en, w/ contr ast No observ ation record ed. [address] [facility], [place], [address], 10/30/2024 17:20:39 Result Notes None recorded. Problems Name Problem SNOMED Code Status Onset Date Resolution Date Notes Provider Name and Address Organization Details Recorded Time Mixed anxiety and depressive disorder 649540238 Active 2018 Musa Dietrich PA-C Attn: [address]ra swift,[address] [place], [address], [facility] 9 11:16:36 Adult health examination Active 2023 Andrew Velazco DO Attn: Libra swift,[address] [place], [address], [place] [facility] 4 21:21:51 Depressive disorder 91787220 Active 2023 Andrew Velazco DO Attn: Libra swift,[address] [place], [address], [place] [facility] 4 21:21:52 Generalized anxiety disorder 88697153 Active 2023 Andrew Velazco DO Attn: Libra swift,[address] [place], [address], [place] [facility] 4 21:21:53 Headache 49987162 Active 2023 Andrew Velazco DO Attn: Libra swift,[address] [place], [address], [facility] - [facility] 4 15:30:06 Smoker 49949861 Active 2023 Andrew Velazco DO Attn: Libra swift,[address] [place], [address], [facility] 4 15:30:07 Morbid obesity 941181888 Active 2023 Andrew Velazco DO Attn: Libra swift,[address] [place], [address], [place] [facility] 4 15:30:08 Cough 74531252 Active 2023 Andrew Velazco DO Attn: Libra swift,[address] [place], [address], [place] [facility] 4 12:02:25 Problem Notes None recorded. Procedures Surgical History Date Name Laterality Status Provider Name and Address Organization Details Recorded Time 8 section completed Musa Dietrich PA-C Attn: Accounting,[address] [place], [address], [place] [facility] 02/04/2019 11:20:05 Imaging Results Imaging Date Name Status LastModified by Organiz ation Details LastModified Time 10/29/2024 XR, chest, 2 view completed [email or web address], [place], [address], 11/18/2024 09:28:00 10/29/2024 CT, angiogram, chest + abdomen, w/ contrast completed [place] [id number] [facility] [address], [place], [address], 10/30/2024 17:20:39 Procedure Notes None recorded. Medical Equipment None Reported. Allergies Allergen ID Allergen Name Allergen Category Reaction Reaction Severity Criticality Documentation Date Start Date Code Code System Note Provider Name and Address Organization Details Recorded Time 252764 latex environme nt,medica tion hives Not available Not available 02/04/2019 21585 91 RxNorm Not Available Not Available Not [...] 1 TABLET BY MOUTH THREE TIMES DAILY 2024 active Not Available Not Available Not Avai lable benzonatate 100 mg capsule TAKE 1 CAPSULE [...] Updated DateTime 9 165.1 cm 42.1 kg/m2 150256. 87 g 98.2 [degF] 82 /min 96 % 96 % 110 mm[Hg] 80 mm[Hg] Autumn Clifton MA [facility] 9 10:48:42 Date Recorded Body height Body mass index (BMI) Body weight Oxygen saturation Oxygen saturation in Arterial blood by Pulse oximetry Heart rate Provider Name and Address Organization Details Last Updated DateTime 170.18 cm 41.1 kg/m2 723323. 9 g 96 % 96 % 72 /min Anay Rooney RN [facility] 4 15:10:56 Date Recorded Body height Body mass index (BMI) Body weight Body temperature Provider Name and Address Organization Details Last Updated DateTime 05/08/2024 170.18 cm 40.1 kg/m2 754362.4 g 97.9 [degF] Radha Royal MA [facility] 05/08/2024 11:35:20 Date Recorded Systolic blood pressure Diastolic blood pressure Provider Name and Address Organization Details Last Updated DateTime 05/08/2024 132 mm[Hg] 82 mm[Hg] Andrew Velazco DO Attn: Accounting,[address] [place], [address], [facility] 05/08/2024 12:02:05 Social History Question Answer Notes LastModified by Organizat ion Details LastModified Time Tobacco Smoking Status Current Every Day Smoker Autumn Clifton MA null, [facility] 02/04/2019 10:46:26 What Is Your Level Of Alcohol Consumption? Occasional Information not available 01/29/2024 What Is Your Level Of Caffeine Consumption? Moderate Information not available 01/29/2024 What Was The Date Of Your Most Recent Tobacco Screening? 02/04/2019 Information not available 04/02/2019 How Much Tobacco Do You Smoke? 1 PPD Information not available 02/04/2019 Do You Use Any Illicit Or Recreational Drugs? No Information not available 01/29/2024 Has Tobacco Cessation Counseling Been Provided? Yes [email or web address] Information not available 02/04/2019 On What Date [...] Time Maternal Aunt Malignant neoplasm of liver Not available 2018 11:18:37 Son Autistic disorder [email or web address] Not available 2018 11:18:45 Maternal Grandmother Diabetes mellitus [email or web address] Not available 2018 11:18:56 Maternal Grandfather Systemic lupus [email or web address] Not available 2018 11:19:07 Maternal Grandfather Rheumatoid arthritis [email or web address] Not available 2018 11:19:15 Medical History Condition Response Coronary Artery Disease N Other N Atrial Fibrillation N High Blood Pressure N Depression Y COPD N Blood Clots N Anxiety Disorder Y Muscle, Joint, or Bone Problems N Arthritis N Acid Reflux (GERD) N Cancer N Stroke N ADHD N High Cholesterol N Liver Disease N Headaches N Schizophrenia N Kidney or Bladder Problems N Thyroid Problems N GI Problems N Eating Disorder N Skin Problems N Anemia N Heart Attack ([place]) N Diabetes N Seizures/Epilepsy N Asthma N Allergies N Substance Abuse N Hepatitis N Osteoporosis N Heart Failure N Gynecological HistoryNo gynecological history recorded. Obstetrics History GPAL:G 0 P 0 0 0 0 Past Encounters Encounter ID Performer Location Encounter Start Date Encounter Closed Date Diagnosis/Indication Diagnosis SNOMED-CT Code Diagnosis ICD10 Code Diagnosis Note [id number] KRISTINE Lujan FP ([address]) [address] [facility] [place] [address] 02/04/2019 10:38:03 02/05/2019 08:59:14 Adult health examination 669460513 Z00.00 We will check some routine labs today. I encouraged pt to eat low-fat, low-salt diet and exercise most days of the week. Mixed anxi ety and depressive disorder 227838775 F41.8 Discussed pt's care with Dr. Menard, who advised switching to a longer acting benzo and ultimately tapering off the medication when Brittney is comfortabl e. I have not been able to reach Brittney, but have LVM requesting she call us to discuss. Kay huizar, can follow up with psych if she is not comfortabl e switching medication s. [id number] Andrew Velazco, DO [facility] [place] [address] [place] [address] 01/29/2024 14:50:27 01/29/2024 16:18:49 Adult health examination [id number] Z00.00 routine labmammogr am needs to be orderedcol onoscopy Depressive disorder 3548 9007 F32.A chronic conditiona t goalescita lopram/Diallo apro 10 mg Generalize d anxiety disorder 54040680 F41.1 chronic conditiona t goalalpraz olam 0.5 mg Morbid obesity [id number] E66.01 healthy dietweight losschroni c conditionn ot at goal Smoker [id number] F17.200 recommend cessationd iscussed Headache [id number] R51.9 right sidedfront alhas ocular migraine diagnosisa dd nurtec 75 mg samples given [id number] Andrew Velazco, DO [facility] [place] [address] [place] [address] [place] [address] 05/08/2024 11:23:28 05/09/2024 10:21:24 Cough [id number] R05.9 z paktessalo n perles Smoker 48834205 F17.200 recommend cessationd iscussed Morbid obesity [id number] E66.01 healthy dietweight losschroni c conditionn ot at goal Health Concerns Section Related Observation LastModified by Organization Detai ls LastModified Time None Recorded Concern Status LastModified by Organization Details LastModified Time None Recorded Advance Directives Directive None Recorded Payers Encounter Date Sequence Insurance Name Policy Number Policy Centeno Covered Member ID Centeno Member ID Guarantor Name 02/04/2019 1 [facility] PRIOR TO 2021 (MEDICAID REPLACEMENT - HMO) Brittney Ramsey [id number] Brittney Ramsey 01/29/2024 1 [facility] (MEDICAID HMO) [id number] Brittney Ramsey [id number] Brittney Ramsey 05/08/2024 1 [facility] [id number] Brittney Ramsey [id number] Brittney Ramsey Notes Date Note Type Note Provider Name [...] time. Musa Dietrich PA-C Attn: [address] [place], [address], [facility] 02/04/2019 14:43:39 01/29/2024 text/html establish care Andrew Velazco DO Attn: [address] [place], [address], [facility] 01/29/2024 18:25:25 05/08/2024 text/html frontal headachecoughsore throatstarted 8 days Andrew Velazco DO Attn: [address] [place], [address], [facility] 05/08/2024 14:21:41 OBGyn Episode No OBEpisode recorded.
--- NOTE | 2024-12-04 10:39 | ED.GENADULT ---
HPI - General Adult General Chief complaint: Skin/Abscess/Foreign Body Stated complaint: I think I have shingles on my face. Time Seen by Provider: 12/04/24 09:56 Source: patient Mode of arrival: ambulatory Limitations: no limitations History of Present Illness HPI narrative: 54-year-old otherwise healthy here with a complaint small boil on her nose she states that pain is radiating into her right side of her cheek she is concerned it could be possible shingles she also states that she is under lot of stress. The last few days she states that she has been having whitish discharge from right eye. Denies any fever or chills the Onset (ago): day(s) (2) Location: face Severity: mild Quality: constant Pain Consistency: constant Relieving factors: none Exacerbating factors: none Associated symptoms: denies other symptoms Treatments prior to arrival: none Related Data Allergies Allergy/AdvReac Type Severity Reaction Status Date / Time latex Allergy Unknown Rash Verified 12/04/24 09:46 Review of Systems Review of Systems: All systems reviewed & are unremarkable except as noted in HPI and below Constitutional: Constitutional: Reports no additional constitutional complaints Eyes: Eyes: Reports no additional eye complaints ENT: Reports system reviewed and no additional complaints, except as documented Cardiovascular: Cardiovascular: Reports no additional cardiovascular complaints Respiratory: Respiratory: Reports no additional respiratory complaints Gastrointestinal: Gastrointestinal: Reports no additional gastrointestinal complaints Genitourinary: Genitourinary: Reports no additional female genitourinary complaints Musculoskeletal: Musculoskeletal: Reports no additional musculoskeletal complaints Integumentary/Breasts: Skin/Breast: Reports as per HPI Neurologic: Reports system reviewed and no additional complaints, except as documented PMFSH Social History Social History Gender identity (if verbalized by the patient): Female Exam Narrative: GENERAL: Well-appearing, well-nourished, and in no acute distress. HEAD: Normocephalic, atraumatic. EYES: PERRLA and EOMI. ENT: Nares clear, no rhinorrhea or epistaxis. Mucous membranes moist. NECK: Supple. CHEST: Clear to auscultation. No respiratory distress. HEART: Regular rate and rhythm. No murmur heard. Normal peripheral pulses. EXTREMITIES: Normal range of motion. No edema. SKIN: Warm, dry, no rash. I small boil on the tip of the nose. There is no other rash on the maxillary area NEURO: No focal deficits. Alert and oriented x3. PSYCH: Normal mood and affect. Course Course Emergency Course: Patient has no previous history of shingles. There is isolated 1 small boil on the tip of the nose could be early cellulitis but nares are normal Vital Signs Vital signs: Vital Signs Temperature 37.1 C 12/04/24 09:43 Pulse Rate 75 12/04/24 09:43 Respiratory Rate 18 12/04/24 09:43 Blood Pressure 134/85 12/04/24 09:43 Pulse Oximetry 97 12/04/24 09:43 Oxygen Delivery Room Air 12/04/24 09:43 Temperature 37.1 C 12/04/24 09:43 Pulse Rate 75 12/04/24 09:43 Respiratory Rate 18 12/04/24 09:43 Blood Pressure 134/85 12/04/24 09:43 Pulse Oximetry 97 12/04/24 09:43 Oxygen Delivery Room Air 12/04/24 09:43 Medical Decision Making Vital Signs Vital Signs: Vital Signs Temperature 37.1 C 12/04/24 09:43 Pulse Rate 75 12/04/24 09:43 Respiratory Rate 18 12/04/24 09:43 Blood Pressure 134/85 12/04/24 09:43 Pulse Oximetry 97 12/04/24 09:43 Oxygen Delivery Room Air 12/04/24 09:43 Temperature 37.1 C 12/04/24 09:43 Pulse Rate 75 12/04/24 09:43 Respiratory Rate 18 12/04/24 09:43 Blood Pressure 134/85 12/04/24 09:43 Pulse Oximetry 97 12/04/24 09:43 Oxygen Delivery Room Air 12/04/24 09:43 Discharge Plan Discharge Clinical Impression: Cellulitis Qualifiers: Site of cellulitis: face Qualified Code(s): L03.211 - Cellulitis of face Patient Disposition: Home, Self-Care Condition: Stable Instructions: Antibiotic Form, Cellulitis (ED) Patient Language: Montenegrin Prescriptions: New doxycycline hyclate 100 mg tablet 100 mg PO DAILY Qty: 14 0RF No Action azithromycin 250 mg tablet See Rx Instructions PO .COMPLEX Qty: 6 0RF Rx Instructions: For 250 mg dose pack: take 500 mg today (day 1), then 250 mg for 4 days (days 2-5) methylprednisolone [Medrol (Ivan)] 4 mg tablets,dose pack See Rx Instructions .ROUTE .COMPLEX Qty: 21 0RF Rx Instructions: orally per package directions methylprednisolone [Medrol (Ivan)] 4 mg tablets,dose pack See Rx Instructions .ROUTE .COMPLEX Qty: 21 0RF Rx Instructions: orally per package directions famotidine [Pepcid] 20 mg tablet 20 mg PO BID Qty: 14 0RF loratadine [Claritin] 10 mg tablet 10 mg PO DAILY PRN (Reason: allergy symptoms) Qty: 10 0RF famotidine [Pepcid] 20 mg tablet 20 mg PO BID Qty: 30 0RF omeprazole 40 mg capsule,delayed release(DR/EC) 40 mg PO DAILY Qty: 20 0RF methylprednisolone [Medrol (Ivan)] 4 mg tablets,dose pack See Rx Instructions .ROUTE .COMPLEX Qty: 21 0RF Rx Instructions: for 6 days fluticasone propionate [24 Hour Allergy Relief] 50 mcg/actuation spray,suspension 2 spray intranasal DAILY Qty: 16 0RF Rx Instructions: administer into each nostril Follow-up/Referrals: Mora,Andrew Rasmussen MD [Primary Care Provider] - Time of Disposition: 10:45
--- OUTSIDE RECORDS SUMMARY | 2024-12-04 10:55 | XMS_ITS | Clinical Summary ---
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
--- OUTSIDE RECORDS SUMMARY | 2024-12-04 10:55 | XMS_ITS | Referral Summary ---
Author Organization 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
--- OUTSIDE RECORDS SUMMARY | 2024-12-04 10:55 | XMS_ITS | Encounter Summary ---
Author Organization [facility] Care Team Providers Care Ultrasound Technician Name Role Phone Sanjay Gallagher MD Primary Care Provider + [phone] Andrew Velazco DO Primary Care Provider + Encounter Details Date Type Department Care Team (Latest Contact Info) Description 03/02/2014 Orders Only [facility] ProviderBere MD [address] [place] [address] Social History Tobacco Use Types Packs/Day Years Used Date Smoking Tobacco: Never Assessed Comments Unknown Sex and Gender Information Value Date Recorded Sex Assigned at Not on file 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
== END 2024-12-04 10:56 | disposition home or self-care (01) ==
PROVIDERS: Emergency Provider Family Medicine; PCP Family Medicine
DX: L03.211 Cellulitis of face (principal)
CPT/HCPCS: 99283

== ENCOUNTER 2025-04-23 11:42 | Outpatient (CLI) | payer OTHER, SELFPAY ==
--- NOTE | ~2025-04-23 | XR_ITS ---
XR knee LT 3V 04/23/2025 12:15 Indication: Left knee pain Procedure: 3 views left knee Comparison: 10/20/2020 Findings: Mild tricompartment osteoarthritis. No fracture, subluxation or dislocation. No significant joint effusion. No foreign bodies. 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 Reviewed, dictated and finalized at location A. 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
--- NOTE | ~2025-04-23 | XR_ITS ---
Right foot Technique: AP, oblique, and lateral views were obtained. Clinical History: Pain Findings: No acute fracture or dislocation is seen. Osseous alignment is anatomic. Joint spaces are p reserved without erosive or degenerative change. Plantar calcaneal spur present. Soft tissues are unr emarkable. Impression: Plantar calcaneal spur, otherwise unremarkable right foot radiographs. Reviewed, dictated and finalized at location . Impression: Plantar calcaneal spur, otherwise unremarkable right foot radiographs.
--- OUTSIDE RECORDS SUMMARY | 2025-04-23 11:51 | XMS_ITS | Clinical Summary ---
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
--- OUTSIDE RECORDS SUMMARY | 2025-04-23 11:51 | XMS_ITS | Patient Health Record ---
Author Organization [facility] Address [address] [place], [place] [address] Care Team Providers Care Clothes Wringer Name Role Phone BRITTANI SELF Unavailable [phone] Cl Samuel Unavailable Unavailable Reason For Referral No Information Medications Medication SIG (Take, Route, Frequency, Duration) Notes Start Date End Date Status escitalopram 10 MG Oral Tablet [Lexapro] ORAL escitalopram 10 MG Oral Tablet [Lexapro]Original Medicationescitalopram 10 MG Oral Tablet [Lexapro] *Reorder from [employer] for eRx and Interaction Alerts* 03/10/2013 Active alprazolam 0.25 MG Oral Tablet [Xanax] ORAL alprazolam 0.25 MG Oral Tablet [Xanax]Original Medicationalprazolam 0.25 MG Oral Tablet [Xanax] *Reorder from [employer] for eRx and Interaction Alerts* 03/10/2013 Active Plan Of Treatment No Information
--- OUTSIDE RECORDS SUMMARY | 2025-04-23 11:51 | XMS_ITS | Encounter Summary ---
Author Organization [facility] Care Team Providers Care Digital Learning Platforms Manager Name Role Phone Sanjay Gallagher MD Primary Care Provider + [phone] Andrew Velazco DO Primary Care Provider + Encounter Details Date Type Department Care Team (Latest Contact Info) Description 03/02/2014 Orders Only [facility] ProviderBere MD [address] [place] [address] Social History Tobacco Use Types Packs/Day Years Used Date Smoking Tobacco: Never Assessed Comments Unknown Sex and Gender Information Value Date Recorded Sex Assigned at Not on file 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
== END 2025-04-23 11:43 | disposition home or self-care (01) ==
PROVIDERS: PCP Family Medicine; Visit Provider Family Medicine
DX: S89.92XA Unspecified injury of left lower leg, initial encounter (principal); X58.XXXA Exposure to other specified factors, initial encounter; M77.31 Calcaneal spur, right foot; M17.12 Unilateral primary osteoarthritis, left knee
CPT/HCPCS: 73562; 73630